=== PATIENT | female | born 1930 | race Caucasian/White ===

== ENCOUNTER 2018-06-01 15:08 | Inpatient (IN) | payer MEDICARE, OTHER ==
--- NOTE | 2018-06-01 15:46 | ED ---
Neurological HPI - HPI Summary HPI Summary: This patient is an 88 year old F presenting to [facility] accompanied by son with a chief complaint of neurological deficit since 1245. Endorses aphasia, drooling, dysphagia, pain, but pt feels no FND sx now. Pt does not remember any of the event or time preceding the event. She endorses slight frontal LIN, and numbness in right hand (for past 2 months). Son denies pt LOC. Endorses pt was mumbling. PMHx HTN, thyroid cancer, thyroidectomy. Pt endorses knee and arm pain due to PMHx arthritis. - History of Current Complaint Chief Complaint: EDNeurologicalDeficit Stated Complaint: STROKE LIKE SYMPTOMS Time Seen by Provider: 06/01/18 15:18 Hx Obtained From: Patient, Family/In Store Marketer Onset/Duration: Sudden Onset, Started hours ago, Resolved Timing: Sudden Onset Onset Severity: Severe Current Severity: None Neurological Deficit Location: Generalized Headache Location: Frontal Character: Weak, Numbness/Tingling - chronic, Impaired Speech, Confusion Syncope Context: Witnessed, Loss of Consciousness: No, At Rest Aggravating: Nothing Alleviating: Spontanious Resolution Associated Signs and Symptoms: Positive: Unsteady Gait, Headache, Memory Loss, Confusion, Weakness, Decreased Level of Consciousness, Impaired Speech. Negative: Loss of Consciousness - Allergy/Home Medications Allergies/Adverse Reactions: Allergies Allergy/AdvReac Type Severity Reaction Status Date / Time codeine Allergy Nausea And Verified 06/01/18 15:19 Vomiting Home Medications: Home Medications Acetaminophen [Acetaminophen Extra Strength] 1,000 mg PO BID PRN 06/01/18 [ History Confirmed 06/01/18] Aspirin EC TAB* [Ecotrin EC Low Dose 81 MG*] 81 mg PO DAILY 06/01/18 [History Confirmed 06/01/18] Ibuprofen TAB* [Advil TAB*] 200 mg PO Q8H PRN 06/01/18 [History Confirmed ] Irbesartan (NF) [Avapro (NF)] 150 mg PO QAM 06/01/18 [History Confirmed 06/01/18 ] Levothyroxine TAB* [Synthroid TAB*] 150 mcg PO DAILY 06/01/18 [History Confirmed 06/01/18] Melatonin 5 mg PO BEDTIME 06/01/18 [History Confirmed 06/01/18] Metoprolol Succinate XL TAB* [Toprol XL TAB*] 50 mg PO DAILY 06/01/18 [History Confirmed 06/01/18] PMH/Surg Hx/FS Hx/Imm Hx Cardiovascular History: Reports: Hx Hypertension Musculoskeletal History: Reports: Hx Arthritis Sensory History: Reports: Hx Contacts or Glasses Opthamlomology History: Reports: Hx Contacts or Glasses EENT History: Denies: Hx Deafness - Cancer History Cancer Type, Location and Year: thyroid - Surgical History Surgery Procedure, Year, and Place: thyroidectomy Infectious Disease History: No Infectious Disease History: Denies: Traveled Outside the [place] in Last 30 Days - Family History Known Family History: Negative: Blood Disorder - Social History Occupation: Retired Alcohol Use: None Substance Use Type: Reports: None Smoking Status (MU): Never Smoked Tobacco Review of Systems Negative: Fever Positive: Other - dysphagia, drooling Positive: Arthralgia - right shoulder, wrist, knee Neurological: Other - amnesia of event. Positive: Headache, Weakness, Numbness, Slurred Speech - aphasia, mumbling. Negative: Syncope All Other Systems Reviewed And Are Negative: Yes Physical Exam - Summary Physical Exam Summary: Appearance: The patient is well-nourished in no acute distress and in no acute pain. Skin: The skin is warm and dry and skin color reflects adequate perfusion. HEENT: The head is normocephalic and atraumatic. The pupils are equal and reactive. The conjunctivae are clear and without drainage. Nares are patent and without drainage. Mouth reveals moist mucous membranes and the throat is without erythema and exudate. The external ears are intact. The ear canals are patent and without drainage. The tympanic membranes are intact. Neck: The neck is supple with full range of motion and non-tender. There are no carotid bruits. There is no neck vein distension. Respiratory: Chest is non-tender. Lungs are clear to auscultation and breath sounds are symmetrical and equal. Cardiovascular: Heart is regular rate and rhythm. There is no murmur or rub auscultated. There is no peripheral edema and pulses are symmetrical and equal. Abdomen: The abdomen is soft and non-tender. There are normal bowel sounds heard in all four quadrants and there is no organomegaly palpated. Musculoskeletal: There is no back tenderness noted. Tenderness to ROM of right shoulder. There is good capillary refill. There is no peripheral edema or calf tenderness elicited. Neurological: Patient is alert and oriented to person, place and time. The patient has symmetrical motor strength in all four extremities. Cranial nerves are grossly intact. Deep tendon reflexes are symmetrical and equal in all four extremities. No FND, NIH score is 0 Psychiatric: The patient has an appropriate affect and does not exhibit any anxiety or depression. Triage Information Reviewed: Yes Vital Signs On Initial Exam: Initial Vitals Temp Pulse Resp BP Pulse Ox 99.6 F 73 16 191/70 96 06/01/18 15:13 06/01/18 15:13 06/01/18 15:13 06/01/18 15:13 06/01/18 15:13 Vital Signs Reviewed: Yes Diagnostics - Vital Signs Vital Signs Temp Pulse Resp BP Pulse Ox 06/01/18 15:18 72 191/70 96 06/01/18 15:13 99.6 F 73 16 191/70 96 - Laboratory Result Diagrams: 06/01/18 15:56 06/01/18 15:56 Lab Statement: Any lab studies that have been ordered have been reviewed, and results considered in the medical decision making process. - Radiology CXR Xray Interpretation: No Acute Changes Radiology Interpretation Completed By: Radiologist - No evidence for acute disease. Dr. Kapoor has reviewed this report. - CT BRAIN CT Interpretation: Positive (See Comments) CT Interpretation Completed By: Radiologist - #. Negative for intracranial hemorrhage or compelling CT stigmata of acute or subacute ischemic stroke. #. Generalized small vessel ischemic disease and lacunar infarct at the anterior limb of the RIGHT internal capsule. Dr. Kapoor has reviewed this report. - EKG 1551 Cardiac Rate: NL - 73 EKG Rhythm: Sinus Rhythm ST Segment: Normal EKG Interpretation: LVH, LAD, LAFT NIH Scale - NIH Scale Level of Consciousness: Alert/Keenly Responsive Ask Patient the Month and His/Her Age: Both Correct Ask Pt to Open/Close Eyes and Glass Calibrator/Release Non-Paretic Hand: Both Correctly Best Gaze (Only Horizontal Eye Movement): Normal Visual Field Testing: No Visual Loss Facial Paresis-Pt to Smile & Close Eyes or Grimace Symmetry: Normal/Symmetrical Motor Function - Right Arm: No Drift-Holds 10 Seconds Motor Function - Left Arm: No Drift-Holds 10 Seconds Motor Function - Right Leg: No Drift-Holds 10 Seconds Motor Function - Left Leg: No Drift-Holds 10 Seconds Limb Ataxia-Must be out of Proportion to Weakness Present: Absent Sensory (Use Pinprick to Test Arms/Legs/Trunk/Face): Normal Best Language (Describe Picture, Name Items): No Aphasia Dysarthria (Read Several Words): Normal Extinction and Inattention: No Abnormality Total Score: 0 Re-Evaluation - Re-Evaluation First Eval Re-Evaluation Time: 17:00 Change: Unchanged Comment: feels fine, exam is unchanged Course/Dx - Course Course Of Treatment: Ms. Shaikh had a vague episode at home some time around noon or 1:00. She became poorly responsive and mumbling and dropped a glass of water. On arrival to the emergency department she has no complaints. She was noted to have a slight leukocytosis of 13.5 and her workup was otherwise unremarkable. I'm not sure if this represents a TIA or syncopal episode or something else and the hospitals were contacted for admission. - Diagnoses Provider Diagnoses: Syncope - Physician Notifications Discussed Care Of Patient With: Steff Stephens Time Discussed With Above Provider: 17:50 Instructed by Provider To: Other - accepted admission, recommend call Dr. Nava. Discharge - Sign-Out/Discharge Documenting (check all that apply): Patient Departure - admit - Discharge Plan Condition: Fair Disposition: ADMITTED TO [facility] Referrals: Kishan Nava MD [Medical Doctor] - - Billing Disposition and Condition Condition: FAIR Disposition: Admitted to [facility]
--- OUTSIDE RECORDS SUMMARY | 2018-06-01 15:51 | XMS REPORT ---
:1930 External Reference #:[id number] Author Organization [facility] Address [address], [address] [place] [address] Phone [phone] Care Team Providers Name Role Phone Juliana Infante N.PMyesha Care Team Information Electronic Installer Unavailable Juliana Infante N.PMyesha Primary Care Physician Unavailable Payers Type Date Identification Numbers Payment Provider Subscriber Commercial Policy Number: [id number] [employer] Cristela Thorpe PayID: [id number] [address] [address] [place] [address] Problems Date Description Provider Status Onset: 05/30/2018 Localized, primary osteoarthritis Hector Franco M.D. Active Social History Type Date Description Comments Lives With Daughter Lives With Son Occupation Retired Work Status Retired Hand Dominance Right-handed Cigarette Use Never Smoked Cigarettes ETOH Use Never used alcohol Recreational Drug Use Never Used Drugs Allergies, Adverse Reactions, Alerts Date Description Reaction Status Severity Comments 04/20/2018 Codeine active 05/30/2018 Percocet GI problems active Medications Medication Date Status Form Strength Qnty SIG Indications Ordering Provider Aspirin 81 Low Active Chewtabs 81mg 1 by mouth Unknown Dose 000 every day Simvastatin Active Tablets 10mg 1 by mouth Unknown 000 every day Irbesartan Active Tablets 150mg 1 by mouth Unknown 000 every day Melatonin Active Capsules 5mg 1 by mouth Unknown 000 every at bedtime as needed Metoprolol Active Tablets 25mg 1 by mouth Unknown Tartrate 000 twice a day Acetaminophen 00/00/0 Active Tablets 325mg 2 by mouth Unknown 000 every 4 hours as needed for pain, headache Levothyroxine Active Tablets 150mcg 1 tablet Colino, Sodium 000 by mouth Alem A., every day SILK [employer]ER Ibuprofen 200 Active Tablets 200mg 1-2 tabs Unknown 000 by mouth three times a day as needed Levothyroxine Hx Tablets 112mcg 1 by mouth Unknown Sodium 000 - every day 018 Levothyroxine 0 Hx Tablets 25mcg 1 by mouth Unknown Sodium 000 - every day 018 Oxycodone HCL Hx Solution 5mg/5ML Unknown 000 - 018 Colace Hx Capsules 100mg 1 by mouth Unknown 000 - daily and can take 018 twice a day as needed Ondansetron HCL Hx Tablets 4mg 1 tab Unknown 000 - every 6hr as needed 018 for nausea Vital Signs Date Vital Result Comment 04/20/2018 BP Systolic 126 mmHg BP Diastolic 59 mmHg Body Temperature 97.6 F Heart Rate 67 /min Respiratory Rate 10 /min Height 63.75 inches 5'3.75" Rarden body weight in kilograms 54 O2 % BldC Oximetry 96 % 04/20/2018 Height 63.75 inches 5'3.75" Weight 130.00 lb Estimated - Patient In Wheelchair BMI (Body Mass Index) 22.5 kg/m2 BSA (Body Surface Area) 1.62 m2 Rarden body weight in kilograms 54 Results Description No Information Procedures Date CPT Code Description Status 05/30/2018 Asp./Injection major joint Completed 04/20/2018 09871 Radiology, Shoulder: Two Views (Sso) Completed 04/20/2018 Asp./Injection major joint Completed 04/10/2018 Asp./Injection major joint Completed Encounters Type Date Location Provider CPT E/M Dx Office Visit 05/30/2018 1:15p [facility]opa[facility] Office Hector Franco M.D. [id number] M17.11 Office Visit 04/20/2018 10:00a Orthopaedic Office Hector Franco M.D. [id number] M25.511 Plan of Care Future Appointment(s):07/10/2018 10:30 am - [id number]/30/2018 - Hector Franco M.D.M17.11 Unilateral primary osteoarthritis, right knee
--- NOTE | 2018-06-01 16:08 | RAD ---
INDICATION: Syncope. COMPARISON: There are no prior studies available for comparison. TECHNIQUE: A portable view of the chest was obtained. FINDINGS: The heart appears mildly enlarged. The lungs are grossly clear. No pleural effusion is seen. IMPRESSION: NO EVIDENCE FOR ACUTE DISEASE.
[2018-06-01 16:10] LABS: ABS Basophils 0.1 10^3/ul (0-0.2); ABS Eosinophils 0 10^3/ul (0-0.6); ABS Lymphocytes 1.9 10^3/ul (1.0-4.8); ABS Monocytes 1.3 10^3/ul (0-0.8); ABS Neutrophils 10.6 10^3/ul (1.5-7.7); ABS Nucleated RBC 0 10^3/ul; Eosinophil % 0.1 % (0-6); Hematocrit 33 % (35-47); Hemoglobin 10.9 g/dl (12.0-16.0); Lymphocyte % 13.9 % (25-47); Mean Corpuscular HGB Conc 33 g/dl (31-36); Mean Corpuscular Hemoglobin 30 pg (27-31); Mean Corpuscular Volume 93 fL (80-97); Mean Platelet Volume 10.2 um3 (7.4-10.4); Nucleated Red Blood Cells % 0; Platelet Count 191 10^3/ul (150-450); Red Blood Count 3.59 10^6/ul (4.00-5.40); Red Cell Distribution Width 16 % (10.5-15); White Blood Count 13.9 10^3/ul (3.5-10.8)
[2018-06-01 16:13] LABS: INR 0.88 (0.77-1.02)
[2018-06-01 16:38] LABS: EGFR Non-African American 62.3 (>60)
--- NOTE | 2018-06-01 17:11 | RAD ---
Indication: Syncope. RIGHT side weakness. Stroke symptoms. Comparison: No relevant prior exams available on the [facility] for comparison. Technique: Noncontrast CT vertex of skull through foramen magnum. Report: Mild prominence of the cerebral sulci. 1 cm chronic appearing lacunar infarct at the anterior limb of the RIGHT internal capsule. Decreased density in the periventricular and subcortical white matter while non-specific is most likely due to chronic microangiopathy. Negative for mass effect. No intra or extra-axial hemorrhage evident. Unremarkable ventricles and basal cisterns. Unremarkable orbital contents. Indolent thickening of the inner table of the frontal bone. No suspicious calvarial or skull base lesions evident. Unremarkable scalp. IMPRESSION: #. Negative for intracranial hemorrhage or compelling CT stigmata of acute or subacute ischemic stroke. #. Generalized small vessel ischemic disease and lacunar infarct at the anterior limb of the RIGHT internal capsule.
[2018-06-01 18:13] LABS: Urine Appearance Clear; Urine Blood Negative (Negative); Urine Color Yellow; Urine Ketones Negative (Negative); Urine Protein Negative (Negative); Urine Specific Gravity 1.018 (1.010-1.030); Urine Urobilinogen Negative (Negative)
[2018-06-01] MEDS ORDERED: Iohexol 350* (CONTRAST) 500 ML MDV IV ONE (19:13)
[2018-06-01] MEDS ORDERED: hydrALAZINE IV* 20 MG/ML VIAL IV SLOW PU PRN (19:32)
--- NOTE | 2018-06-01 20:02 | RAD ---
INDICATION: TIA. COMPARISON: No relevant prior exams available on the [facility] for comparison. TECHNIQUE: Bilateral carotid duplex scan. Stenosis estimations reflect velocity criteria that have been correlated to angiographic stenosis calculations based on distal internal carotid diameter. REPORT: RIGHT ICA: 87 cm/s peak systolic 14 cm/s end diastolic CCA: 97 cm/s peak systolic ICA/CCA peak systolic ratio: 0.89 The right common carotid artery and internal carotid artery are remarkable for only minimal atherosclerotic disease. Normal spectral wave forms are present throughout. No evidence for significant carotid stenosis. Antegrade flow in the right vertebral artery. LEFT ICA: 76 cm/s peak systolic 8 cm/s end diastolic CCA: 83 cm/s peak systolic ICA/CCA peak systolic ratio: 0.92 The left common carotid artery and internal carotid artery are remarkable for only minimal atherosclerotic disease. Normal spectral wave forms are present throughout. Severely tortuous LEFT internal and external carotid arteries. No evidence for significant carotid stenosis. Antegrade flow in the left vertebral artery. IMPRESSION: #. Minimal bilateral atherosclerotic plaque without resulting carotid stenosis based on NASCET criteria. CPT II Codes: 3100F
--- NOTE | 2018-06-01 20:46 | RAD ---
Indication: Confusion. RIGHT-sided weakness. TIA symptoms. Comparison: CT brain of the same date. Technique: [employer] [place] 1.5 Anabel [id number] with GEM suite. MRI brain without contrast. Report: Diffusion series is negative for acute or subacute ischemia. Susceptibility series is negative for stigmata of hemosiderin deposition to indicate previous hemorrhage. Mild prominence of the cerebral sulci reflecting atrophy. Unremarkable ventricles and basal cisterns. 1.2 cm chronic lacunar infarct at the RIGHT basal ganglia. Moderate grossly symmetric increased signal in the periventricular and subcortical white matter of the cerebral hemispheres most consistent with chronic small vessel ischemic disease. No intra or extra-axial fluid collection evident. Unremarkable orbital contents. Preserved major intracranial flow-voids. No suspicious calvarial or skull base lesion evident. Fluid level and gas bubbles noted at the LEFT sphenoid sinus. The paranasal sinuses and mastoid air spaces are otherwise clear. Unremarkable scalp. IMPRESSION: #. No evidence for acute or subacute ischemia or other acute intracranial process. #. Mild involutional change and stigmata of chronic small vessel ischemic disease. Chronic lacunar infarct at the RIGHT basal ganglia. #. Correlate clinically for potential acute LEFT sphenoid sinusitis.
--- NOTE | 2018-06-01 21:32 | HP ---
HOSPITAL MEDICINE HISTORY AND PHYSICAL: DATE OF ADMISSION: 06/01/18 PRIMARY CARE PHYSICIAN: None. ATTENDING PHYSICIAN: Steff Stephens MD * (dictation provided by Danette Jarquin NP ) CHIEF COMPLAINT: Episode of confusion and mumbling. HISTORY OF PRESENT ILLNESS: Ms. Thorpe is an 88-year-old female with a past medical history of hypertension, thyroid cancer, status post thyroidectomy who presents today to the hospital after an episode of mumbling and confusion. Ms. Thorpe is here today with her daughter who provides some of the history as well as her son. Per the report, Ms. Thorpe was feeling well yesterday. There is note made of the fact the before the patient was "exhausted" and slept all day. She was arousable and was appropriate when she awoke. Again, she felt well yesterday. This morning at approximately noon, the patient had an episode where she was mumbling. The patient is described as being able to answer her name and date of at times, then just staring off into space when asked other questions. Her speech was slurred. The patient has right arm weakness, which has been attributed to osteoarthritis in her right shoulder and right knee weakness, which has been attributed to osteoarthritis of that knee. She is wearing a brace for that now. She has been cared for by Dr. Franco of Orthopedic Surgery in [place] for both of these issues as of March. She therefore has right-sided weakness, but it seemed to be at baseline. There was no facial asymmetry noted. The patient's family called the EMS. The patient states she does not remember these events and the first thing she remembers is getting into the ambulance. She and her family feel that she is back to baseline now with no complaints. Family note that she had a similar episode in July of last year, October of last year, and March of this year. In speaking with them further, it seems that she may even had a similar episode a couple of days ago in which she was mumbling and appeared confused. Ms. Thorpe has a complicated recent history. She recently moved from [place] to live with her daughter. In July 2017, she had mumbling episode. In October 2017, she had a second episode associated with a fall in which she hit her head and she was cared for at [facility] for several days during which time she was described as being delirious. She went to [facility] for rehabilitation after this episode. In March, she developed pain in her right knee and right shoulder with weakness on that side and she was cared for at [facility] under the direction of Dr. Franco from orthopedic services. The patient has had steroid injections to her knee and shoulder for ongoing pain, but she does also have weakness. She again went to [facility] after that hospitalization and was discharged to home on May 18. In the emergency room, Ms. Thorpe had labs, which were unremarkable except for white blood cell count of 13.9 and mild anemia with a hemoglobin of 10.9. She had CT brain, which was read as follows: "Negative for intracranial hemorrhage or compelling CT stigmata of acute or subacute ischemic stroke, but there is a 1 cm chronic appearing lacunar infarct at the anterior limb of the right internal capsule and generalized small vessel ischemic disease." PAST MEDICAL HISTORY: 1. Hypertension. 2. Hypothyroidism, status post thyroidectomy for thyroid cancer. 3. Cholecystectomy. 4. Hysterectomy. 5. Bladder tuck. 6. Osteoarthritis. 7. Previous treatment for rheumatoid arthritis, but the patient was told that it had resolved and she is no longer on methotrexate. 8. "A little heart leak" followed by professor of food biochemistry in [place] in the past. 9. Carotid artery disease, unknown severity. MEDICATIONS: 1. Acetaminophen 1000 mg p.o. b.i.d. 2. Ibuprofen 200 mg p.o. q.8 hours p.r.n. 3. Melatonin 5 mg p.o. at bedtime. 4. Aspirin 81 mg p.o. daily. 5. Irbesartan 150 mg p.o. q.a.m. 6. Levothyroxine 150 mcg p.o. daily. 7. Metoprolol succinate 50 mg p.o. daily. ALLERGIES: To CODEINE. FAMILY HISTORY: The patient reports mother of old age at age of 92 and dad related to colon cancer at 72. SOCIAL HISTORY: No report of alcohol, tobacco, or drug use. The patient lives with her daughter and her son. Her daughter, Xiomara Hernandez, would be the healthcare proxy. REVIEW OF SYSTEMS: A 14-point review of systems was completed with Ms. Thorpe and all those not mentioned above were negative. PHYSICAL EXAMINATION GENERAL: Ms. Thorpe is in the bed with her daughter and son at the bedside. VITAL SIGNS: Temperature 99.6, pulse 87, respiratory rate 16, O2 saturation 96 % on room air, blood pressure 185/76. LUNGS: Clear to auscultation bilaterally with no accessory muscle use and good aeration. HEART: S1 and S2. No murmur, rub, or gallop and regular. ABDOMEN: Soft, nontender with bowel sounds positive x4. EXTREMITIES: No cyanosis or edema. NEURO: She is alert. She is oriented x3. She has weakness noted in right upper extremity. She has pain limiting mobility in the right shoulder. She has weakness in her right handgrip. There is positive +5 strength in the left upper extremity and good strong color separation photographer. She has +5 strength in bilateral lower extremities. No facial asymmetry. Speech is clear. Extraocular movements are intact. SKIN: Intact. LABORATORY DATA: Sodium 137, potassium 4.8, chloride 106, serum bicarbonate 23 , BUN 43, creatinine 0.86, glucose 93. TSH 4.62. WBC 13.9, hemoglobin 10.9, hematocrit 33, platelet count 191. INR 0.88. Urine shows no evidence of infection. IMAGING: CT brain as read above. Chest x-ray shows no evidence for acute disease. EKG shows a sinus rhythm with a heart rate in the 70s and no evidence of ischemia. ASSESSMENT AND PLAN: Ms. Thorpe is an 88-year-old female with a past medical history of hypertension and hypothyroidism, status post thyroidectomy for thyroid cancer as well as at least 3 recent episodes of described as mumbling and confusion per family who now presents with a 4th episode of mumbling and confusion that is now resolved. Our plans are for inpatient admission as I expect her length of stay to be greater than 2 days for the followin. Episode of mumbling. Patient's symptoms could reflect a transient ischemic attack. CT of the brain does show an old lacunar infarct, but no current acute or subacute infarct. I reviewed the case with Dr. Martines from Neurology , who will be providing consultation tomorrow. The patient is to have a carotid ultrasound now. She states that she has a history of carotid artery disease in the past. The patient states she had a carotid evaluation sometime recently, but she is not able to provide any further characterization. I did speak with the family about whether or not they would want intervention for significant carotid stenosis and they indicated no. The patient will go on for an MRI of the brain. The patient will have a transthoracic echocardiogram, lipid profile. She will have a hemoglobin A1c. The patient's blood pressure is elevated in the ED, but I do plan to allow for some permissive hypertension and allow blood pressure to range from 140 to 180 systolically this evening and we will have hydralazine available for anything above 180. She has aspirin ordered and Dr. Martines recommended continuing low-dose aspirin pending his further evaluation tomorrow. The patient's symptoms could also be related to seizures and EEG has been ordered. 2. Hypertension. Continue metoprolol and irbesartan with hydralazine available for blood pressure greater than 180. 3. Hypothyroidism. Continue levothyroxine. 4. Right sided weakness. Patient's symptoms in her right shoulder and knee seemed to have evolved separately over time culminating in more significant symptoms in March. She does have significant right upper extremity weakness which is reported to be at baseline. She has been undergoing therapy at home, plan to continue. These symptoms do not appear to be related to CVA but MRI results are pending. 5. Code status is DNR. 6. Disposition to telemetry unit. TIME SPENT: Approximately 60 minutes were spent on the admission of this patient, more than half the time spent with the patient at the bedside reviewing the events leading up to this hospitalization, performing the physical examination, and reviewing the plan of care. DANETTE JARQUIN NP [id number]/[facility] #: [id number] SANAZ
--- NOTE | 2018-06-02 06:13 | PN ---
Progress Note - Progress Note Date of Service: 06/02/18 Note: Nursing called reporting recurrence of admitting symptoms of word searching/ substitution. Last known normal 0400. Upon arrival, she is able to give her name , but to other questions murmurs incoherently, occasionally producing an unrelated word. She appears mildly confused, but not anxious or in distress. Denies pain. Review of her H&P reveals admission for same, suspect TIA vs seizure. vitals: Vital Signs Temp 36.9 C 06/02/18 04:01 Pulse 81 06/02/18 04:01 Resp 18 06/02/18 04:01 BP 159/55 06/02/18 04:01 Pulse Ox 95 06/02/18 04:01 Intake & Output 06/01/18 06/01/18 06/02/18 11:59 23:59 11:59 Intake Total 0 Balance 0 Weight 60.056 kg Intake: Oral 0 Constitutional: NAD, normally developed, well-nourished elderly white female HEENM: atraumatic; sclera/conjunctiva: anicteric/clear; hearing: clinically intact; oropharynx: clear, mucosa moist Neck: soft tissue: ; thyroid: Pulmonary: clear to auscultation bilaterally, good aeration, no accessory muscle use, percussion, fremitus CV: RR/RR, normal S1S2, no carotid bruit, no femoral bruit, no abdominal bruit, no jugular venous distention, 2+ B DP/PT, no edema Abdominal: soft, non-distended, non-tender, no rebound/guarding/rigidity, normoactive bowel sounds, no hepatosplenomegaly or masses, no costovertebral angle tenderness Musculoskeletal: general: grossly intact, non-tender Integumental: normal appearance and texture of exposed skin Neurological cranial nerves II: unable to adequately assess visual main III/IV/: symmetric light reflex, EOMI/PERRLA V: intact facial sensation & mastication VII: intact facial symmetry & eye clench VIII: hearing clinically intact IX/X: symmetric palatal motion, no dysarthria XII: midline tongue protrusion, expressive aphasic voice articulation motor LUE: 4+/5 proximally, distally, & application specialist strength RUE: 4+/5 proximally, distally, & application specialist strength LLE: 4+/5 proximally & distally RLE: 4+/5 proximally & distally coordination finger/nose: heal/suarez: dysdiadochokinesia: sensory crude touch: intact globally DTRs biceps: 2+ brisk B triceps: 1+ B brachioradialis: trace B patellar: unable to produce B, patient c/o pain with attempts Babinski: upgoing B Psychiatric orientation: AA&O to person, unable to produce words to clarify further affect: calm mood: cooperative eye contact: fair to poor content: mostly incoherent with sprinkled unrelated words memory: unable to assess responses: timely insight: currently poor repeat CT brain to r/o ICH, personally reviewed: largely limited by motion artifact, awaiting official read assessment: plan TIA vs seizure : case reviewed with Nazia Martines MD neurology : keep supine : IVFs to support higher blood pressure : continue aspirin, add 75mg clopidogrel daily : obtain carotid US : EEG this AM : 75mg levetiracetam IV now & continue 500mg PO BID : not a candidate for tPA : patient/family had declined surgical intervention for carotid artery disease : further chart review finds carotid US completed yesterday, negative Critical Care Time: 50minutes spent on above
[2018-06-02] MEDS ORDERED: NS 0.9% 1000 ML* 500 ML IV SCH (06:30)
[2018-06-02] MEDS ORDERED: Acetaminophen TAB* 325 MG PO PRN (06:32)
[2018-06-02] MEDS: Levothyroxine TAB* 150 MCG TAB PO SCH (06:33)
[2018-06-02] MEDS: Clopidogrel TAB* 75 MG PO SCH (06:34)
[2018-06-02] MEDS ORDERED: levETIRAcetam IV* 750 MG in NS 0.9% 100 ML* 100 ML IVPB SCH (07:00)
--- NOTE | 2018-06-02 08:34 | RAD ---
Indication: Stroke. CT of the brain was performed without IV contrast. Ventricular structures are midline. No midline shift is noted. The extra-axial spaces are unremarkable. There is no evidence of intracranial mass or hemorrhage. No other high or low density lesions are identified. Periventricular lucency consistent with chronic ischemic White matter change is noted. Old right basal ganglia infarct is noted. Mastoid air cells and paranasal sinuses are unremarkable. When compared to previous exam of June 01, 2018 no significant change is noted. IMPRESSION: Chronic ischemic White matter change. No acute changes are noted. No intracranial mass or hemorrhage is noted. Old right basal ganglia infarct is noted.
[2018-06-02] MEDS: Aspirin 81 mg CHEW TAB* 81 MG TAB.CHEW PO SCH (08:47)
[2018-06-02] MEDS ORDERED: Losartan TAB* 25 MG PO SCH ×2 (09:00→18:00)
[2018-06-02] MEDS ORDERED: Aspirin TAB* 325 MG PO SCH (09:00)
[2018-06-02] MEDS ORDERED: Aspirin EC TAB* 81 MG TAB.EC PO SCH (09:00)
[2018-06-02] MEDS ORDERED: Metoprolol Succinate XL TAB* 50 MG PO SCH (09:00)
--- NOTE | 2018-06-02 11:12 | CONS ---
CONSULTATION REPORT: DATE OF CONSULT: HISTORY OF PRESENT ILLNESS: This is an 88-year-old woman being evaluated for multiple episodes of mumbling and difficulty speaking. History is from the patient, from the daughter who I called, and from the chart. She has had these mumbling episodes since July of 2017, she had a second one in October of 2017, and she was treated up at [facility] for several days' time. In March, while being treated for orthopedic problems in [facility], she had another mumbling episode that lasted more than 12 hours according to the daughter. Daughter notes that the episodes all begin with her mumbling and being somewhat confused. There is no staring. If she is asked her name, she could eventually get it out and just mumble it, but her speech is greatly decreased. During this , she tends to slump. The daughter denied any abnormal movements with any of these episodes and no clear change in strength. She has right shoulder and knee problems that have affected the right side of her body, but this is a chronic ongoing problem according to the daughter and the chart. She came in yesterday with episode of mumbling and confusion that lasted 2-1/2 hours and then resolved. She then early this morning had an episode of mumbling that resolved shortly after she had a repeat CT scan. There are no abnormal movements or clear weakness of any with these episodes. There is no past history of clear seizure or stroke. PAST MEDICAL/SURGICAL HISTORY: She has a history of hypertension, hypothyroidism, status post thyroidectomy for thyroid cancer, cholecystectomy, hysterectomy, bladder tuck, osteoarthritis. She has had a past history of rheumatoid arthritis, apparently resolved. She has a history of carotid disease. MEDICATIONS: At home, include: 1. Ibuprofen 200 mg p.r.n. 2. Melatonin 5 mg at bedtime. 3. Aspirin 81 mg daily. 4. Irbesartan 150 mg q.a.m. 5. Levothyroxine 150 mcg daily. 6. She was recently started on metoprolol 50 mg in the morning at [place]. She was hospitalized at [facility] [place] and her statin was stopped but not due to any clear side effects according to the daughter. ALLERGIES: She is allergic to CODEINE. FAMILY HISTORY: Mother of old age at 92 and dad of colon cancer at 72. SOCIAL HISTORY: She does not smoke, drink, or use drugs, and she lives with her daughter. REVIEW OF SYSTEMS: Negative in all 14 spheres, other than in the HPI. PHYSICAL EXAM: Temperature 98.4; pulse 81; respiratory rate is 18; blood pressure 159/55, diastolic has been as low as 47. She is alert and oriented with normal speech and comprehension. She spoke in sentences. Cranial nerves II through XII intact. Fundi showed good reflex bilaterally. She moves all extremities with power, roughly 5/5, although she was somewhat limited by pain at her right shoulder and at her right knee. Sensation grossly intact to light touch. Reflexes were trace to 1 with equivocal to downgoing toes. Chest: Clear. Cardiovascular: Regular rate and rhythm. Abdomen: Soft with positive bowel sounds. DIAGNOSTIC STUDIES/LAB DATA: I reviewed her MRI scan from yesterday and her CT scan from yesterday and today. There is diffuse significant white matter disease bilaterally as well as a small old lacunar infarct in the right basal ganglia. Her carotid Doppler done yesterday showed minimal carotid disease. Labs include normal CMP other than a BUN of 43, hemoglobin A1c was 6.3, LDL was 101. White count 13.9, hematocrit 33, platelets 191. INR is 0.88, PTT 16.6. UA was negative. ASSESSMENT AND PLAN: I discussed with Danette Jarquin NP, Dr. Mark Martínez, and daughter this morning that Cristela's symptoms could either be secondary to transient ischemic attacks in a distal branch of the carotid. The family and she did not want aggressive intervention and she does not have any carotid disease; it is conceivable davion has atherosclerosis more distally and that is causing her symptoms perhaps in combination with hypotension. I discussed with Dr. Lopez whether metoprolol may be exacerbating this potentially underlying problem. We will also, if she tolerated, have her on aspirin and Plavix for 3 months in case there is distal atherosclerotic disease, the other possibility is that this could be seizures. Her spells last little bit too long for it to be likely to be seizures; they have lasted more than 10 hours in one case and without any abnormal movements and with her being responsive but just difficulty saying her name during. We began her on Keppra this morning when she was having repeated attacks and the story was less clear. If her EEG is normal , even though that does not rule out the seizures. I discussed with her and the family the pros and cons of a therapeutic trial of keppra and given the stereotyped nature of her events and the recurrence they want to try her on keppra and discussed side effects and if significant moodiness occurs will reconsider. Thank you for sharing her case. [id number]/[facility] #: [id number] SANAZ
[2018-06-02 11:28] LABS: Hematocrit 32 % (35-47); Hemoglobin 10.3 g/dl (12.0-16.0); Mean Corpuscular HGB Conc 33 g/dl (31-36); Mean Corpuscular Hemoglobin 30 pg (27-31); Mean Corpuscular Volume 93 fL (80-97); Mean Platelet Volume 10.3 um3 (7.4-10.4); Platelet Count 177 10^3/ul (150-450); Red Cell Distribution Width 16 % (10.5-15); White Blood Count 16.8 10^3/ul (3.5-10.8)
[2018-06-02 11:41] LABS: EGFR Non-African American 92.6 (>60)
[2018-06-02 11:55] LABS: ABS Basophils 0.1 10^3/ul (0-0.2); ABS Eosinophils 0.1 10^3/ul (0-0.6); ABS Lymphocytes 2.6 10^3/ul (1.0-4.8); ABS Monocytes 1.6 10^3/ul (0-0.8); ABS Neutrophils 12.4 10^3/ul (1.5-7.7); ABS Nucleated RBC 0 10^3/ul; Eosinophil % 0.5 % (0-6); Lymphocyte % 15.2 % (25-47); Nucleated Red Blood Cells % 0
--- NOTE | 2018-06-02 14:37 | ECHO ---
Patient: MICHELE BASSETT [facility] Rec#: [id number] : 1930 Date: 06/02/2018 Age: 88y Height: 163 cm / 64.2 in Weight: 60.3 kg / 132.9 lbs Sex: F BSA: 1.65 Room#: 438 Admit Date#: 06/01/2018 Type: Inpatient Referring: Danette Jarquin NP Reading: Tom Rangel MD Shoe Cementer: Natividad Winters RDCS Transthoracic Echocardiogram Indication: TIA BP: 159/55 HR: 76 Rhythm: NSR Findings History: HTN, thyroid cancer s/p thyroidectomy. Technical Comments: The study was technically limited due to the patient's inability to lay in the left lateral decubitus position. Completed at 1250. Left Ventricle: The left ventricular chamber size is normal. Mild concentric left ventricular hypertrophy is observed. Global left ventricular wall motion and contractility are within normal limits. There is normal left ventricular systolic function. The estimated ejection fraction is 60-65%. Abnormal left ventricular diastolic filling is observed, consistent with impaired relaxation. The patient was unable to perform a Valsalva maneuver. Left Atrium: The left atrium is moderately dilated. Right Ventricle: Moderator Band present. The right ventricular cavity size is normal. The right ventricular global systolic function is normal. Right Atrium: The right atrium is mildly dilated. Aortic Valve: The aortic valve is trileaflet. The aortic valve leaflets are mildly thickened. There is mild aortic regurgitation. There is no evidence of aortic stenosis. Mitral Valve: There is mitral annular calcification. The mitral valve leaflets are mildly thickened. There is moderate mitral regurgitation. Tricuspid Valve: The tricuspid valve leaflets are normal. There is trace tricuspid regurgitation. Unable to estimate the right ventricular systolic pressure. Pulmonic Valve: The pulmonic valve structure is not well visualized. There is no evidence of pulmonic regurgitation. There is no pulmonic stenosis. Pericardium: There is no significant pericardial effusion. A pericardial fat pad is visualized. Aorta: There is no dilatation of the ascending aorta. There is no dilatation of the aortic arch. The aortic root is normal in size. Pulmonary Artery: The main pulmonary artery is not well visualized. Venous: The inferior vena cava is dilated. There is an approximate 50% respiratory change in the inferior vena cava dimension. Conclusions There is normal left ventricular systolic function. The estimated ejection fraction is 60-65%. Global left ventricular wall motion and contractility are within normal limits. The left ventricular chamber size is normal. Mild concentric left ventricular hypertrophy is observed. Abnormal left ventricular diastolic filling is observed, consistent with impaired relaxation. The left atrium is moderately dilated. The right atrium is mildly dilated. There is mild aortic regurgitation. There is moderate mitral regurgitation. There is no prior echocardiogram available to compare with at this time. Measurements Name Value Normal Range RVIDd (AP) 2D 3 cm (0.9 - 2.6) RVDdMajor (2D) 3.4 cm (2.2 - 4.4) RAd ISD 4CH 5.5 cm (3.4 - 4.9) RA (A4C)W 4 cm (2.9 - 4.6) IVSd (2D) 1.2 cm (0.6 - 1) LVPWd (2D) 1.3 cm (0.6 - 1) LVIDd (2D) 4.1 cm (3.6 - 5.4) LVIDs (2D) 2.1 cm - LV FS (2D) 48 % (25 - 45) Aortic Annulus 2.1 cm (1.4 - 2.6) Ao root diameter (2D) 3.2 cm (2.1 - 3.5) Ascending Ao 2.8 cm (2.1 - 3.4) Aortic arch 2.5 cm (1.8 - 3.4) LA dimension (AP) 2D 4.1 cm (2.3 - 3.8) LAd ISD 4CH 5.6 cm (2.9 - 5.3) LA ISD 4CH W 4.6 cm (2.5 - 4.5) Name Value Normal Range LA ESV BP (A/L) index 39 ml/m2 - Name Value Normal Range MV E-wave Vmax 0.6 m/sec - MV deceleration time 261 msec - MV A-wave Vmax 0.78 m/sec - MV E:A ratio 0.8 ratio - LV septal e' Vmax 0.06 m/sec - LV lateral e' Vmax 0.06 m/sec - LV E:e' septal ratio 10 ratio - LV E:e' lateral ratio 10 ratio - Name Value Normal Range AV Vmax 1.2 m/sec - AV VTI 26.7 cm - AV peak gradient 5 mmHg - AV mean gradient 3 mmHg - LVOT Vmax 1.1 m/sec - LVOT VTI 26.7 cm - LVOT peak gradient 5 mmHg - LVOT mean gradient 3 mmHg - MARIANGEL Vmax 0.74 m/sec - Name Value Normal Range MR Vmax 5.5 m/sec - MR VTI 184 cm - MR flow (PISA) 46.7 ml/sec - MR ERO 0.09 cm2 - MR PISA radius 0.4 cm - MR alias Vmax 46.2 cm/sec - Name Value Normal Range IVC diameter 2.8 cm - Name Value Normal Range PV Vmax 0.67 m/sec - PV peak gradient 2 mmHg -
--- NOTE | 2018-06-02 16:21 | PN ---
Subjective Date of Service: 06/02/18 Interval History: Patient is A/Ox1 and has a waxing and waning mental status with mood swings. Recurrent aphasia overnight. Improved today. Still very lethargic and falls asleep in the middle of conversations. Accusing nursing staff of lying to her. Denies CP, SOB, Dizziness, N/V, abdominal pain, diarrhea, Dysuria, F/C, or other pain. Discussed baseline with daughter and she states that this is very much removed from patient's baseline which is very alert and conversational. Family History: Unchanged from Admission Social History: Unchanged from Admission Past Medical History: Unchanged from Admission Objective Active Medications: Acetaminophen (Tylenol Tab*) 650 mg PO Q6H PRN PRN Reason: FEVER/PAIN Last Admin: 06/02/18 06:55 Dose: 650 mg Aspirin (Aspirin 81 Mg Chew Tab*) 81 mg PO DAILY [facility] Last Admin: 06/02/18 08:47 Dose: 81 mg Atorvastatin Calcium (Lipitor*) 40 mg PO 1700 [facility] Clopidogrel Bisulfate (Plavix Tab*) 75 mg PO 0900 [facility] Last Admin: 06/02/18 06:34 Dose: 75 mg Levetiracetam (Keppra Tab*) 500 mg PO BID [facility] Levothyroxine Sodium (Synthroid Tab*) 150 mcg PO 0600 [facility] Last Admin: 06/02/18 06:33 Dose: 150 mcg Losartan Potassium (Cozaar Tab*) 50 mg PO QPM [facility] Metoprolol Succinate (Toprol Xl Tab*) 25 mg PO DAILY [facility] Vital Signs - 8 hr 06/02/18 11:10 Temperature 98.3 F Pulse Rate 75 Respiratory 20 Rate Blood Pressure 174/56 (mmHg) O2 Sat by Pulse 97 Oximetry Oxygen Devices in Use Now: None Appearance: Patient is an 88yo female who appears stated age and is sitting in the bed in [facility]. Eyes: No Scleral Icterus, PERRLA Ears/Nose/Mouth/Throat: NL Teeth, Lips, Gums, Clear Oropharnyx, Mucous Membranes Moist Neck: NL Appearance and Movements; NL JVP, Trachea Midline Respiratory: Symmetrical Chest Expansion and Respiratory Effort, Clear to Auscultation Cardiovascular: NL Sounds; No Murmurs; No JVD, RRR, No Edema Abdominal: NL Sounds; No Tenderness; No Distention, No Hepatosplenomegaly Lymphatic: No Cervical Adenopathy Extremities: No Edema, No Clubbing, Cyanosis Skin: No Rash or Ulcers, No Nodules or Sclerosis Neurological: NL Sensation, - - A/Ox1, CN II-XII intact. 4/5 strength in left side consistnet with previous reporting. Result Diagrams: 06/02/18 11:15 06/02/18 11:15 Assess/Plan/Problems-Billing Assessment: Patient is an 88yo female with a PMH for TIA, Hypothyroidism, HLD, HTN, Carotid Artery Disease, here with Recurrent neurological episodes of difficulty finding words and is being evaluated for ischemic events versus seizure activity. Patient currently has a fluctuating mental state consistent with delirium. - Patient Problems (1) Aphasia Current Visit: Yes Status: Acute Code(s): R47.01 - APHASIA SNOMED Code(s) : 80857580 Comment: Recurrent Stereotyped episodes of Expressive Aphasia. No involuntary movements. Previously had weakness associated with aphasia. Continue Aspirin, Plavix and Lipitor for Possible TIA. Continue Keppra for possible seizure given stereotyped nature of attacks. MRI shows no ischemia, Carotid US shows no stenosis, Echo shows no PFO or dilated LA. No current aphasia. (2) Hyperlipidemia Current Visit: Yes Status: Acute Code(s): E78.5 - HYPERLIPIDEMIA, UNSPECIFIED SNOMED Code(s): 21466588 Comment: Goal of LDL 70 in setting of TIA. Resume Lipitor, no documented adverse reaction. (3) HTN (hypertension) Current Visit: Yes Status: Acute Code(s): I10 - ESSENTIAL (PRIMARY) HYPERTENSION SNOMED Code(s): 01477541 Comment: Permissive hypertension in setting of TIA. Reduced dose metoprolol, recently stopped dyazide. Resume Losartan. HOB flat. Will titrate medication stating tomorrow with different agent than metoprolol. (4) Hypothyroidism Current Visit: Yes Status: Acute Code(s): E03.9 - HYPOTHYROIDISM, UNSPECIFIED SNOMED Code(s): 14836058 Comment: TSH WNL. Recent increase in Synthroid. (5) Delirium Current Visit: Yes Status: Acute Code(s): R41.0 - DISORIENTATION, UNSPECIFIED SNOMED Code(s): 4727950 Comment: Has AMS in hospitals on several occasions with fluctuating mental state. Very sharp at baseline per family. Likely hospital induced delirium. Continue supportive care and frequent reorientation. (6) DVT prophylaxis Current Visit: Yes Status: Acute Code(s): GOM1731 - SNOMED Code(s): 444699047 (7) DNR (do not resuscitate) Current Visit: Yes Status: Acute
[2018-06-02] MEDS ORDERED: Atorvastatin* 40 MG TAB PO SCH (17:00)
[2018-06-02] MEDS: Heparin VIAL(*) 5000 UNITS/ML VIAL (FIVE THOUSAND) SUBCUT SCH (20:49)
[2018-06-02] MEDS: levETIRAcetam TAB* 500 MG PO SCH (20:49)
--- NOTE | 2018-06-03 02:15 | EEG ---
ELECTROENCEPHALOGRAPHY: DATE OF STUDY: DATE OF DICTATION: 06/02/18 PATIENT OF: Danette Jarquin NP CLINICAL PROBLEM: This is an 88-year-old woman being evaluated for staring spells and slurred speech. This study was done to evaluate for possible seizures. MEDICATIONS: Include: 1. Keppra. 2. Aspirin. 3. Cozaar. 4. Toprol. 5. Synthroid. 6. Plavix. 7. Apresoline. REPORT: With the patient awake, background cerebral activity consists of moderate amplitude diffuse 7 to 8 Hz rhythm. No epileptiform potentials, focal abnormalities or major asymmetries of background are noted. CLINICAL IMPRESSION: This awake EEG shows no major abnormalities. There is some swelling secondary to perhaps age. [id number]/[facility] #: [id number] MTDD
[2018-06-03] MEDS ORDERED: hydrALAZINE IV* 20 MG/ML VIAL IV PRN (04:32)
[2018-06-03] MEDS: Levothyroxine TAB* 150 MCG TAB PO SCH (04:41)
[2018-06-03] MEDS: Heparin VIAL(*) 5000 UNITS/ML VIAL (FIVE THOUSAND) SUBCUT SCH (04:41)
[2018-06-03 05:25] LABS: ABS Basophils 0.2 10^3/ul (0-0.2); ABS Eosinophils 0.2 10^3/ul (0-0.6); ABS Lymphocytes 2.9 10^3/ul (1.0-4.8); ABS Monocytes 1.4 10^3/ul (0-0.8); ABS Neutrophils 8.5 10^3/ul (1.5-7.7); ABS Nucleated RBC 0 10^3/ul; Eosinophil % 1.5 % (0-6); Hematocrit 35 % (35-47); Hemoglobin 11.3 g/dl (12.0-16.0); Lymphocyte % 22.2 % (25-47); Mean Corpuscular HGB Conc 33 g/dl (31-36); Mean Corpuscular Hemoglobin 30 pg (27-31); Mean Corpuscular Volume 92 fL (80-97); Mean Platelet Volume 10.4 um3 (7.4-10.4); Nucleated Red Blood Cells % 0; Platelet Count 177 10^3/ul (150-450); Red Blood Count 3.76 10^6/ul (4.00-5.40); Red Cell Distribution Width 16 % (10.5-15); White Blood Count 13.1 10^3/ul (3.5-10.8)
[2018-06-03 05:40] LABS: EGFR Non-African American 119.2 (>60)
[2018-06-03] MEDS: Clopidogrel TAB* 75 MG PO SCH (08:28)
[2018-06-03] MEDS: levETIRAcetam TAB* 500 MG PO SCH (08:28)
[2018-06-03] MEDS: Aspirin 81 mg CHEW TAB* 81 MG TAB.CHEW PO SCH (08:28)
[2018-06-03] MEDS ORDERED: amLODIPine TAB* 5 MG PO SCH (09:00)
[2018-06-03] MEDS ORDERED: Metoprolol Succinate XL TAB* 50 MG PO SCH (09:00)
[2018-06-03] MEDS ORDERED: Magnesium Sulfate IV* 3 GM in NS 0.9% 100 ML* 100 ML IVPB ONE (09:34)
[2018-06-03 14:09] VITALS: BP 166/62
[2018-06-03] MEDS ORDERED: Losartan TAB* 25 MG PO SCH (18:00)
--- NOTE | 2018-06-03 20:50 | DS ---
CC: Dr. Keyur Martines; Juliana Infante NP; Dr. Kishan Nava * DISCHARGE SUMMARY: DATE OF ADMISSION: 06/01/18 DATE OF DISCHARGE: 06/03/18. PRIMARY CARE PROVIDER: Dr. Kishan Nava. MY ATTENDING WHILE IN THE HOSPITAL: Dr. Aman Em.* (DICTATED BY GEOVANNY ROBLERO) CONSULTING NEUROLOGIST: Dr. Keyur Martines. PRIMARY DISCHARGE DIAGNOSES: 1. Intermittent aphasia. 2. Lethargy. 3. Hypertensive urgency. 4. Concern for transient ischemic attack versus seizure. SECONDARY DISCHARGE DIAGNOSES: 1. Postprocedural hypothyroidism. 2. Hypertension. 3. Hyperlipidemia. STUDIES DONE WHILE IN THE HOSPITAL: Electrocardiogram from 06/01/18, read as normal sinus rhythm, early polarization in V2, V3, incomplete right bundle- branch block, left axis deviation. No ST segment abnormalities. No hypertrophy or enlargement. Brain CT from 06/01/18, read as negative for intracranial hemorrhage or compelling CT stigmata of acute or subacute ischemic stroke, generalized small vessel ischemic disease, and lacunar infarct in the anterior limb of the right internal capsule. Chest x-ray from 06/01/18, read as no evidence for acute disease. Transthoracic echocardiogram on 06/01/18, read as there is normal left ventricular systolic function, estimated ejection fraction 60 to 65%, global left ventricular wall motion and contractility within normal limits. Left ventricular chamber size is normal. Mild concentric left ventricular hypertrophy. Abnormal left ventricular diastolic function is observed consistent with impaired relaxation. Left atrium is mildly dilated, right atrium mildly dilated, mild aortic regurgitation, moderate mitral regurgitation , no prior echocardiogram to compare. 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 Carotid Doppler study from 06/01/18, read as minimal bilateral atherosclerotic plaque without resulting carotid stenosis based on NASCET criteria. Repeat brain CT from 06/02/18, read as chronic ischemic white matter changes, no acute changes are noted, no intracranial mass or hemorrhage. An old right basal ganglia infarct. Electroencephalogram from 06/02/18, read as awake EEG, no major abnormalities, mild slowing possibly secondary to age. No epileptiform discharges. MEDICATIONS AT DISCHARGE: 1. Melatonin 5 mg p.o. bedtime. 2. Aspirin 81 mg p.o. daily. 3. Levothyroxine 150 mcg p.o. daily. 4. Tylenol 650 mg p.o. q.6 hours as needed. 5. Amlodipine 5 mg p.o. daily. 6. Lipitor 40 mg p.o. daily. 7. Clopidogrel 75 mg p.o. daily. 8. Keppra 500 mg p.o. b.i.d. 9. Metoprolol succinate 25 mg p.o. daily. 10. Irbesartan 150 mg p.o. q.p.m. New medications at discharge: 1. Amlodipine. 2. Lipitor. 3. Clopidogrel. 4. Keppra. 5. Metoprolol. Medications discontinued at discharge: 1. Ibuprofen 200 mg p.o. q.8 hours as needed. 2. Metoprolol succinate 50 mg p.o. daily. HOSPITAL COURSE: This is a brief summary of the patient's presentation. For more details, please see the history and physical from Danette Jarquin NP, on . In brief, the patient is an 88-year-old female with past medical history significant for the above, who has recently been hospitalized twice for recurrent stereotypical episodes of neurological deficits including expressive aphasia, who was first seen at [facility] on 10/29/18 for a fall , loss of consciousness, and aphasia accompanied by weakness. The patient at that time had a CT angiogram of the neck, which showed no large vessel occlusion. Also, had a chest x-ray, which was within normal limits. The patient was not a tPA candidate. The patient was admitted to the hospital, started on aspirin. The patient had an MRI of the brain, which was unremarkable , echo with bubble study, lipid panel, hemoglobin A1c, a swallow study, and was seen by physical therapist and occupational therapist. The patient was found to have hyponatremia with a sodium of 127, which resolved quickly upon discontinuation of her hydrochlorothiazide. The patient had leukocytosis, which improved throughout her stay. The patient had no other signs of infection. The patient was started on salt tabs, which were discontinued at an unknown time. The patient had no neurological deficits on discharge. The patient had, throughout her hospitalization, a waxing and waning mental course consistent of delirium. The patient was told to liberalize sodium in her diet as well. The patient was asymptomatic except for elevated blood pressures from that time until she was admitted on 04/09/18 to [facility] due to knee pain. During which hospitalization, the patient had a similar episode of aphasia, negative CT as well as uncontrolled hypertension, which had resolved on the time of discharge. The patient during the hospitalization received triamcinolone injections in both of her knees, which helped with her chronic leg pain. The patient was sent from there as a short- term rehab, from which she was discharged to home. 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 The patient was asymptomatic from her discharge until she came in on 06/01/18, with expressive aphasia, again without other neurological deficits on exam. The patient was not able to give a last known well nor was her son. The patient was admitted to the hospital, imaging as above showing no obvious signs to explain her aphasia. The patient was admitted to have permissive hypertension; however, her blood pressure dropped spontaneously below to 149/47 as a low on 06/02/18, and she had another episode subsequently of aphasia. The patient was given a fluid bolus. Had a repeat CT of her head, which was negative as above. The patient was started on Keppra IV, transitioned to oral. Had an electroencephalogram for concern for stereotypic episodes of aphasia, which were not associated with any involuntary movements, negative EEG. It was recommended due to the patient's low systolic blood pressure and apparent intolerance of this low blood pressure that she be transitioned from metoprolol to a different agent for control of her blood pressure. The patient's Toprol dose was decreased from 50 mg daily to 25. The patient had amlodipine started and her irbesartan was switched to p.m. dosing for more consistent with blood pressure control. The patient, on day of 06/02/18, was lethargic, somewhat confused with a fluctuating mental status being falling asleep while talking to staff members as well as her family and lashing out at staff members when they offered help. This resolved quickly overnight from 06/02/18 to 06/03/18. The patient in the morning was entirely pleasant, oriented, had a normal breakfast, was able to ambulate with minimal assistance, and no signs of aphasia. Normal neurologic exam. The patient while in the hospital, started on aspirin and Plavix for concern for TIA as well as Keppra, which she was continued on. Overnight from 06/02/18 and 06/03/18, the patient had a blood pressure with a high of 210/88, which resolved with administration of hydralazine IV and stayed decreased with the addition of amlodipine to her antihypertensive regimen with her last blood pressure on discharge being 154/67. The patient was stable on the night of discharge on 06/03/18, to follow up with her primary care provider for ongoing blood pressure management, avoiding hypotension as well as following up with Dr. Martines, Neurology in one month for evaluation of her ongoing need for antiseizure medication and dual antiplatelet therapy. PHYSICAL EXAMINATION ON DAY OF DISCHARGE: General: The patient is an 88-year- old female, who appears stated age and sitting comfortably in bed, in no acute distress. Vital Signs: At the time of discharge, temperature 97.8, pulse rate 85, respiratory rate 20, oxygen saturation 95% on room air, blood pressure 154/67. HEENT: Head: Normocephalic, atraumatic. Sclerae are anicteric. No conjunctival injection. Nasal mucosa moist. Oral mucosa moist. No pharyngeal erythema, discharge or exudate. Neck: Supple, nontender. No lymphadenopathy. No carotid bruit auscultated. No JVD. Cardiac: Regular rate and rhythm. No clicks, murmurs, gallops or rubs. Pulses are 2+ bilaterally in dorsalis pedis, posterior tibialis, and radial areas. No bilateral lower extremity edema noted. No calf tenderness. Respiratory: Clear to auscultation bilaterally. No wheezes, rales or rhonchi. Good air exchange bilaterally. Abdomen: Soft, nontender, nondistended. Bowel sounds present, normoactive in all 4 quadrants. No hepatosplenomegaly. No abdominal bruits auscultated. No hepatojugular reflux. Genitourinary: No suprapubic or CVA tenderness. Skin: Clean, dry, and intact. No rash. Neurologic: Cranial nerves II through XII intact. No focal deficits. Alert and oriented x3. Psychiatric: Pleasant and cooperative. LABORATORY DATA: On day of discharge, white blood cell count 13.1, hemoglobin 11.3, platelet count 177. Sodium 136, potassium 4.2, chloride 105, carbon dioxide 24, anion gap 7, BUN 24, creatinine 0.49, glucose 91, calcium 9, magnesium 1.7. Other laboratory data of note from admission, LDL cholesterol 101 , HDL cholesterol 56.5. Troponin I initially at 0.01. Vitamin B12 of 336, folate 115.28, iron 83, TIBC is 361, percent saturation 23, ferritin 30.2. Urine unremarkable. DISCHARGE PLAN: The patient will be discharged to home. The patient should have close followup with her primary care provider and home nursing agency for control of her blood pressure. The patient should be tapered off of her metoprolol for at least 1 week with increasing of her amlodipine during that time for control of her blood pressure. Per neurological recommendation, the patient should monitor closely for repeat episodes of aphasia. The patient should continue taking her Keppra for control of what could possibly be a seizure disorder. The patient should follow up with Dr. Martines in one month after discharge for neurological evaluation. The patient should take her dual antiplatelet therapy as prescribed as well as her antiplatelet medication. The patient should have a heart healthy diet, less caffeine. The patient should avoid liberalizing salt in her diet. The patient should not be reintroduced on two hydrochlorothiazide due to previous hyponatremia. The patient should return to the hospital for new onset aphasia, weakness, involuntary movement, syncope, chest pain, shortness of breath or other alarming symptoms. TIME SPENT: Approximately 60 minutes was spent on this discharge, 30 of which was spent [id number] with the patient obtaining history and physical and discussing treatment plan. GEOVANNY ROBLERO [id number]/[facility] #: [id number] SANAZ
== END 2018-06-03 15:01 | disposition home or self-care (01) | DRG 92 ==
LOC: ED 15:08 → MEDTELE 18:57
PROVIDERS: ADMIT Internal Medicine; ATTEND Internal Medicine
DX: R47.01 Aphasia (principal); G45.9 Transient cerebral ischemic attack, unspecified; G45.1 Carotid artery syndrome (hemispheric); R53.83 Other fatigue; I16.0 Hypertensive urgency; R56.9 Unspecified convulsions; E89.0 Postprocedural hypothyroidism; E78.5 Hyperlipidemia, unspecified; M17.11 Unilateral primary osteoarthritis, right knee; M19.011 Primary osteoarthritis, right shoulder; I25.10 Atherosclerotic heart disease of native coronary artery without angina pectoris; Z66 Do not resuscitate; R41.0 Disorientation, unspecified; I11.9 Hypertensive heart disease without heart failure; Z85.850 Personal history of malignant neoplasm of thyroid; Z79.1 Long term (current) use of non-steroidal anti-inflammatories (NSAID); Z79.82 Long term (current) use of aspirin; Z79.899 Other long term (current) drug therapy; Z88.5 Allergy status to narcotic agent; Z80.0 Family history of malignant neoplasm of digestive organs
CPT/HCPCS: 36415; 70450; 70551; 71045; 80048; 80053; 80061; 81003; 82607; 82728; 82746; 83036; 83540; 83550; 83605; 83735; 83921; 84443; 84484; 85025; 85610; 85730; 93005; 93306; 93880; 95819; 99283; A9270-GY; J0360; J1644; J3475

== ENCOUNTER 2019-01-24 16:41 | Emergency (ER) | payer MEDICARE ==
[2019-01-24 18:40] VITALS: BP 181/68
--- NOTE | 2019-01-24 18:49 | UC ---
Lower Extremity/Ankle HPI - HPI Summary HPI Summary: 88-year-old woman comes in with a chief complaint of right lower leg ecchymosis and swelling. This started 3 days ago. Patient occasionally has episodes where she does not remember what happened. The patient does not remember what happened. No known fall per care providers. The pain and swelling is all in the front of the lower leg. Over time the ecchymosis and swelling is spread down into the right ankle. Patient does minimal weightbearing. There is no pain or swelling in the posterior aspect of the leg. She has chronic knee pain. - History of Current Complaint Chief Complaint: UCLowerExtremity Stated Complaint: RIGHT LEG INJURY Time Seen by Provider: 01/24/19 18:37 Pain Intensity: 0 - Allergies/Home Medications Allergies/Adverse Reactions: Allergies Allergy/AdvReac Type Severity Reaction Status Date / Time acetaminophen [From Percocet] Allergy Nausea Verified 01/24/19 18:29 codeine Allergy Nausea And Verified 01/24/19 18:28 Vomiting oxycodone [From Percocet] Allergy Nausea Verified 01/24/19 18:29 Home Medications: Home Medications Ibuprofen TAB* [Advil TAB*] 800 mg BEDTIME PRN 01/24/19 [History Confirmed 01/24] PMH/Surg Hx/FS Hx/Imm Hx Previously Healthy: Yes Cardiovascular History: Hypertension - Surgical History Surgical History: Yes Surgery Procedure, Year, and Place: thyroidectomy; bladder tuck; hysterectomy; cholecysectomy; nodule removed from adrenal glands; tonsilectomy - Family History Known Family History: Negative: Blood Disorder - Social History Alcohol Use: None Substance Use Type: None Smoking Status (MU): Never Smoked Tobacco - Immunization History Most Recent Influenza Vaccination: fall 2016 Most Recent Pneumonia Vaccination: unknown date Review of Systems All Other Systems Reviewed And Are Negative: Yes Constitutional: Positive: Negative Skin: Positive: Bruising - SEE HPI Eyes: Positive: Negative ENT: Positive: Negative Respiratory: Positive: Negative Cardiovascular: Positive: Negative Gastrointestinal: Positive: Negative Motor: Positive: Negative Neurovascular: Positive: Negative Musculoskeletal: Positive: Other: - SEE HPI Neurological: Positive: Negative Psychological: Positive: Negative Is Patient Immunocompromised?: No Physical Exam Triage Information Reviewed: Yes Appearance: Well-Appearing, No Pain Distress, Well-Nourished Vital Signs: Initial Vital Signs Temp 98 F 01/24/19 18:32 Pulse 81 01/24/19 18:32 Resp 16 01/24/19 18:32 BP 181/68 01/24/19 18:32 Pulse Ox 98 01/24/19 18:32 Vital Signs Reviewed: Yes Eye Exam: Normal Eyes: Positive: Conjunctiva Clear Neck: Positive: Supple Respiratory: Positive: No respiratory distress Musculoskeletal: Positive: Other: - Right lower leg has swelling and ecchymosis on the anterior aspect. There is no drainage. It is not hot to touch. The area is approximately 10 cm x 5 cm. The ecchymosis tracks down into the right ankle and foot. The right anterior suarez is tender to palpation approximately mid shaft. The posterior leg in the calf and the popliteal portion of the knee is nontender to palpation and not swollen. Knee has minimal tenderness to palpation which the patient and family report has chronic. Normal capillary refill in the foot no sensation deficits normal pulses. Neurological Exam: Normal Neurological: Positive: Alert, Muscle Tone Normal Psychological Exam: Normal Psychological: Positive: Normal Response To Family, Age Appropriate Behavior Lower Extremity Course/Dx - Course Course Of Treatment: I reviewed the x-rays with the patient I reviewed the x- rays with the patient and her family. I do not see any fracture radiologist reading is pending. The pain and swelling all anterior. No calf pain or popliteal pain. Based on examination there is no evidence of a deep venous thrombosis at this time. No evidence of infection the area is not hot there is no erythema. This was all discussed with the patient and her family. I let them know if she has any calf pain or any signs of infection she needs to get reevaluated again right away. - Differential Dx/Diagnosis Provider Diagnosis: Contusion of lower leg, right Discharge - Sign-Out/Discharge Documenting (check all that apply): Patient Departure All imaging exams completed and their final reports reviewed: No - Discharge Plan Condition: Stable Disposition: HOME Patient Education Materials: Contusion in Adults (ED) Referrals: Isauro Almaraz DO [Primary Care Provider] - Additional Instructions: FOLLOW UP WITH YOUR DOCTOR. GET RECHECKED FOR ANY WORSENING OF YOUR CONDITION; SIGNS OF INFECTION, PAIN OR SWELLING IN THE CALF OR QUESTIONS OR CONCERNS. - Billing Disposition and Condition Condition: STABLE Disposition: Home
--- NOTE | 2019-01-25 08:42 | UC ---
- EKG/XRAY/CT Xray Comments: no fxs noted Course/Dx - Diagnoses Provider Diagnoses: Contusion of lower leg, right Discharge - Sign-Out/Discharge Documenting (check all that apply): Post-Discharge Follow Up All imaging exams completed and their final reports reviewed: Yes - Discharge Plan Condition: Stable Disposition: HOME Patient Education Materials: Contusion in Adults (ED) Referrals: Isauro Almaraz DO [Primary Care Provider] - Additional Instructions: FOLLOW UP WITH YOUR DOCTOR. GET RECHECKED FOR ANY WORSENING OF YOUR CONDITION; SIGNS OF INFECTION, PAIN OR SWELLING IN THE CALF OR QUESTIONS OR CONCERNS. - Billing Disposition and Condition Condition: STABLE Disposition: Home
== END 2019-01-24 19:34 | disposition home or self-care (01) ==
LOC: UCCORT 16:41
DX: S80.11XA Contusion of right lower leg, initial encounter (principal); I10 Essential (primary) hypertension; Z88.5 Allergy status to narcotic agent; X58.XXXA Exposure to other specified factors, initial encounter; Y92.9 Unspecified place or not applicable
CPT/HCPCS: 99211; G0463

== ENCOUNTER 2019-02-15 14:14 | Inpatient (IN) | payer MEDICARE ==
[2019-02-15] MEDS ORDERED: NS 0.9% 1000 ML** 1,000 ML IV ONE (14:18)
--- NOTE | 2019-02-15 14:28 | ED ---
Neurological HPI - HPI Summary HPI Summary: This pt is an 88 y/o female presenting to [facility] brought to the ED by Dr. Martines for left sided weakness. Pt was at Dr. Martines's office for an evaluation today. Family reports pt was last well seen at 22:00 last night when pt went to bed. Per family, pt was alert and oriented last night. Per family, pt was mumbling in the middle of the night. Pt at baseline does not move very much and can't get herself up, per family members. This morning upon waking up family noticed the pt was "off" and pt couldn't eat with her left hand. Family notes the pt had a sonogram last night at [facility] and also had blood drawn. Her US was negative for DVT. - History of Current Complaint Stated Complaint: ACUTE STROKE PER PHYS. Time Seen by Provider: 02/15/19 14:18 Hx Obtained From: Patient, Family/Elevator Service Technician Onset/Duration: Sudden Onset, Still Present Timing: Sudden Onset Current Severity: Moderate Neurological Deficit Location: LUE Pain Intensity: 0 - denies pain Pain Scale Used: 0-10 Numeric Character: Weak - left sided Aggravating: Nothing Alleviating: Other Associated Signs and Symptoms: Positive: Weakness - Additional Pertinent History Primary Care Physician: [id number] - Allergy/Home Medications Allergies/Adverse Reactions: Allergies Allergy/AdvReac Type Severity Reaction Status Date / Time acetaminophen [From Percocet] Allergy Nausea Verified 01/24/19 18:29 codeine Allergy Nausea And Verified 01/24/19 18:28 Vomiting oxycodone [From Percocet] Allergy Nausea Verified 01/24/19 18:29 PMH/Surg Hx/FS Hx/Imm Hx Endocrine/Hematology History: Reports: Hx Thyroid Disease - hypothyroid d/t thyroidectomy Denies: Hx Diabetes Cardiovascular History: Reports: Hx Coronary Artery Disease, Hx Hypercholesterolemia, Hx Hypertension Denies: Hx Pacemaker/ICD History: Reports: Other Problems/Disorders - bladder tuck Musculoskeletal History: Reports: Hx Arthritis - OA, RA Sensory History: Reports: Hx Contacts or Glasses, Hx Hearing Aid Denies: Hx Deafness Opthamlomology History: Reports: Hx Contacts or Glasses Psychiatric History: Denies: Hx Panic Disorder - Cancer History Cancer Type, Location and Year: thyroid - Surgical History Surgery Procedure, Year, and Place: thyroidectomy; bladder tuck; hysterectomy; cholecysectomy; nodule removed from adrenal glands; tonsilectomy - Family History Known Family History: Negative: Blood Disorder - Social History Alcohol Use: None Substance Use Type: Reports: None Smoking Status (MU): Never Smoked Tobacco Review of Systems Negative: Fever, Chills Positive: Weakness - left sided All Other Systems Reviewed And Are Negative: Yes Physical Exam - Summary Physical Exam Summary: Appearance: Well appearing, Skin: warm, dry, reflects adequate perfusion Head/face: normal Eyes: EOMI, ZEE ENT: normal Neck: supple, non-tender Respiratory: CTA, breath sounds present Cardiovascular: RRR, pulses symmetrical Abdomen: non-tender, soft Musculoskeletal: PULSE B/L Neuro: A&Ox3, left sided weakness. GCS: 15 Triage Information Reviewed: Yes Vital Signs On Initial Exam: Initial Vitals Temp Pulse Resp BP Pulse Ox 97.8 F 91 16 183/65 98 02/15/19 14:52 02/15/19 14:52 02/15/19 14:52 02/15/19 14:52 02/15/19 14:52 Vital Signs Reviewed: Yes Diagnostics - Laboratory Result Diagrams: 02/15/19 15:15 02/15/19 15:15 Lab Statement: Any lab studies that have been ordered have been reviewed, and results considered in the medical decision making process. - Radiology Chest XR Radiology Interpretation Completed By: Radiologist Summary of Radiographic Findings: IMPRESSION: No active cardiopulmonary disease is noted. Dr. Leroy has reviewed this report. - CT Brain CT CT Interpretation Completed By: Radiologist Summary of CT Findings: IMPRESSION: 1. No acute intracranial pathology. 2. Chronic small vessel ischemic change. Preliminary findings were discussed with Dr. Leroy in the the emergency department at approximately 2:40 PM on January. CTA Head/Neck CT Interpretation Completed By: Radiologist Summary of CT Findings: IMPRESSION: 1. Atherosclerosis. 2. No internal carotid artery stenosis by nascet criteria. 3. No aneurysm, vascular malformation, occlusion, or stenosis of the visualized intracranial circulation. Dr. Leroy has reviewed this report. - EKG 15:09 Cardiac Rate: NL - at 90 bpm EKG Rhythm: Sinus Rhythm Summary of EKG Findings: No acute changes. NIH Scale - NIH Scale Level of Consciousness: Alert/Keenly Responsive Ask Patient the Month and His/Her Age: Both Correct Ask Pt to Open/Close Eyes and Clerical Coordinator/Release Non-Paretic Hand: Both Correctly Best Gaze (Only Horizontal Eye Movement): Partial Gaze Palsy Visual Field Testing: Partial Hemianopia Facial Paresis-Pt to Smile & Close Eyes or Grimace Symmetry: Partial Paralysis Motor Function - Right Arm: No Drift-Holds 10 Seconds Motor Function - Left Arm: Effort Against [place] Motor Function - Right Leg: Drifts LT 10 seconds Motor Function - Left Leg: Drifts LT 10 seconds Limb Ataxia-Must be out of Proportion to Weakness Present: Absent Sensory (Use Pinprick to Test Arms/Legs/Trunk/Face): Pinprick Less on Affected Best Language (Describe Picture, Name Items): No Aphasia Dysarthria (Read Several Words): Normal Extinction and Inattention: Inattention Total Score: 10 Course/Dx - Course Course Of Treatment: Eliseo Schilling called at 14:20. Dr. Martines and Dr. Leroy immediately at bedside. Pt to CT at 14:30. Dr. Serrato, radiologist, reports brain CT at 14:40. Pt returns from CT at 14:48. Assessment/Plan: Pt is an 88 y/o female brought to the ED by Dr. Martines for left sided weakness. Last well seen was at 22:00 last night. Pt had blood work done at [facility] yesterday. Brain CT shows 1. No acute intracranial pathology. 2. Chronic small vessel ischemic change. Chest XR is negative. CTA Head/neck shows 1. Atherosclerosis. 2. No internal carotid artery stenosis by nascet criteria. 3. No aneurysm, vascular malformation, occlusion, or stenosis of the visualized intracranial circulation. Dr. Quach saw and evaluated the pt in the ED. Discussed the case with Dr. Trent, hospitalist, who accepted the pt for admission. - Diagnoses Provider Diagnoses: CVA (cerebral vascular accident) During the Visit The Following Alert/Code Occurred: Eliseo Schilling - at 14:20 - Physician Notifications Discussed Care Of Patient With: Remington Serrato Time Discussed With Above Provider: 14:40 Instructed by Provider To: Other - Dr. Serrato, radiologist, reports brain CT results. [15:15] Discussed with Dr. Trent, hospitalist, who accepted the pt for admission. Discharge - Sign-Out/Discharge Documenting (check all that apply): Patient Departure - Admit to [facility] Patient Received Moderate/Deep Sedation with Procedure: No - Discharge Plan Condition: Stable Disposition: ADMITTED TO [facility] Referrals: Isauro Almaraz DO [Primary Care Provider] - - Billing Disposition and Condition Condition: STABLE Disposition: Admitted to [facility] - Attestation Statements Document Initiated by Akosua: Yes Documenting Scribe: Ingrid Mcmanus Provider For Whom Akosua is Documenting (Include Credential): Augusto Leroy MD Scribe Attestation: Ingrid Humphrey, scribed for Augusto Leroy MD on 02/15/19 at 1623. Scribe Documentation Reviewed: Yes Provider Attestation: The documentation as recorded by the Ingrid wong accurately reflects the service I personally performed and the decisions made by , Augusto Leroy MD Status of Scribe Document: Viewed
[2019-02-15] MEDS ORDERED: Iodixanol* (CONTRAST) 320 MG/ML 100 ML SDV IV ONE (14:34)
--- OUTSIDE RECORDS SUMMARY | 2019-02-15 14:58 | XMS REPORT | Continuity of Care Document ---
:1930 External Reference #:[id number] Author Name Mer Calles NP Address [address] [place] [address] Care Team Providers Name Role Phone Isauro Almaraz D.O. Care Team Information Algorithm Developer Unavailable Isauro Almaraz D.O. Primary Care Physician Unavailable Payers Date Identification Numbers Payment Provider Subscriber Policy Number: [id number] [facility] Cristela Thorpe PayID: [id number] [address] [address] [place] [address] Advance Directives Description No Information Available Problems Description No Information Family History Date Family Member(s) Observation Comments Father due to Cancer () - age 72 Mother due to Heart Disease () - age 93 First Brother due to blood clot () - age 70 Social History Type Date Description Comments Sex Unknown Tobacco Use Start: Unknown Never Smoked Cigarettes ETOH Use Never used alcohol Recreational Drug Use Denies Drug Use Allergies, Adverse Reactions, Alerts Date Description Reaction Status Severity Comments 01/25/2019 Codeine Active 01/25/2019 Percocet Active Medications Medication Date Status Form Strength Qnty SIG Indications Ordering Provider Synthroid // Active Tablets 175mcg Once in Almaraz,Isauro 0000 morning D.O. Amlodipine 00/ Active Tablets 5mg Once a Almaraz,Isauro Besylate 0000 day D.O. Metoprolol / Active Tablets ER 25mg Once Almaraz,Isauro Succinate ER 0000 24HR daily D.O. Levetiracetam / Active Solution 500mg/5ML Twice a Conrad, 0000 day MD Keyur Irbesartan 00/00/ Active Tablets 150mg Once Sung,Isauro 0000 daily D.O. Atorvastatin / Active Tablets 40mg Once Almaraz,Isauro Calcium 0000 daily D.O. Clopidogrel 00/00/ Active Tablets 75mg 1 by Unknown Bisulfate 0000 mouth every day Immunizations Description No Information Available Vital Signs Date Vital Result Comment 01/25/2019 1:14pm Weight 138.00 lb Height 60 inches 5'0" BMI (Body Mass Index) 26.9 kg/m2 BP Systolic 171 mmHg BP Diastolic 78 mmHg Heart Rate 86 /min O2 % BldC Oximetry 96 % Body Temperature 97.8 F Pain Level 0 Results Description No Information Available Procedures Date Code Description Status 01/25/2019 59971 Remove Impacted Cerumen Completed Encounters Type Date Location Provider Dx Diagnosis Office Visit 01/25/2019 Main Office Mer Calles, H61.23 Impacted cerumen, 1:30p BOX GLUER bilateral Plan of Treatment No Information Available
--- OUTSIDE RECORDS SUMMARY | 2019-02-15 14:58 | XMS REPORT | Continuity of Care Document ---
:1930 External Reference #:[id number] Author Name Tonya Quesada Care Team Providers Name Role Phone Isauro Almaraz D.O. Care Team Information Grievance And Appeals Coordinator Unavailable Isauro Almaraz D.O. Primary Care Physician Unavailable Payers Date Identification Numbers Payment Provider Subscriber Policy Number: [id number] [facility] PayID: [id number] [address] [address] [place] [address] Advance Directives Description No Information Available Problems Description No Information Family History Description No Information Available Social History Type Date Description Comments Sex Unknown Allergies, Adverse Reactions, Alerts Date Description Reaction Status Severity Comments 01/25/2019 Codeine Active 01/25/2019 Percocet Active Medications Medication Date Status Form Strength Qnty SIG Indications Ordering Provider Synthroid 00/00/ Active Tablets 175mcg Once in Almaraz,Isauro 0000 morning D.O. Amlodipine 00/00/ Active Tablets 5mg Once a Almaraz,Isauro Besylate 0000 day D.O. Metoprolol 00/00/ Active Tablets ER 25mg Once Almaraz,Isauro Succinate ER 0000 24HR daily D.O. Levetiracetam 00/ Active Solution 500mg/5ML Twice a Conrad, 0000 day MD Keyur Irbesartan 00/00/ Active Tablets 150mg Once Almaraz,Isauro 0000 daily D.O. Atorvastatin 00/00/ Active Tablets 40mg Once Almaraz,Isauro Calcium 0000 [...] 0 Results Description No Information Available Procedures Description No Information Available Encounters Description No Information Available Plan of Treatment No Information Available
[2019-02-15] MEDS ORDERED: Ondansetron INJ* 2 MG/ML VIAL IV PRN (15:12)
[2019-02-15] MEDS ORDERED: Aspirin 81 mg CHEW TAB* 81 MG TAB.CHEW PO ONE (15:17)
[2019-02-15 15:27] LABS: ABS Basophils 0 10^3/ul (0-0.2); ABS Eosinophils 0.1 10^3/ul (0-0.6); ABS Lymphocytes 1.3 10^3/ul (1.0-4.8); ABS Monocytes 0.8 10^3/ul (0-0.8); ABS Neutrophils 10.2 10^3/ul (1.5-7.7); ABS Nucleated RBC 0 10^3/ul; Eosinophil % 0.5 %; Hematocrit 32 % (33-41); Hemoglobin 10.5 g/dL (12.0-16.0); Lymphocyte % 10.7 %; Mean Corpuscular HGB Conc 33 g/dL (31-36); Mean Corpuscular Hemoglobin 30 pg (27-31); Mean Corpuscular Volume 92 fL (80-97); Nucleated Red Blood Cells % 0.1; Platelet Count 187 10^3/uL (150-450); Red Blood Count 3.51 10^6 /uL (3.70-4.87); Red Cell Distribution Width 14 % (10.5-15); White Blood Count 12.5 10^3/uL (3.5-10.8)
[2019-02-15 15:39] LABS: Activated Partial Thrombo Time 30.3 seconds (26.0-36.3); INR 0.97 (0.77-1.02)
[2019-02-15 15:48] LABS: Albumin 3.6 g/dL (3.2-5.2); Albumin/Globulin Ratio 1.1 (1-3); BUN/Creatinine Ratio 49.2 (8-20); Calcium 8.9 mg/dL (8.6-10.3); EGFR African American 116.4 (>60); EGFR Non-African American 96.2 (>60); Globulin 3.2 g/dL (2-4); HDL Cholesterol 52.6 mg/dL; Potassium 4.7 mmol/L (3.5-5.0); Total Bilirubin 0.3 mg/dL (0.2-1.0); Total Protein 6.8 g/dL (6.4-8.9)
[2019-02-15 15:49] LABS: Troponin I 0.01 ng/mL (<0.04)
[2019-02-15 16:08] LABS: TSH (Thyroid Stimulating Horm) 3.67 mcIU/mL (0.34-5.60)
[2019-02-15] MEDS: ceFAZolin 1 GM ADVAN(*) 1 GM in NS 0.9% 50 ML* 50 ML IVPB SCH (17:15)
[2019-02-15] MEDS: Atorvastatin* 40 MG TAB PO SCH (17:16)
--- NOTE | 2019-02-15 18:01 | CONS ---
CC: Dr. Almaraz; Dr. Martines * CONSULTATION REPORT: DATE OF CONSULT: 02/15/19 PRIMARY CARE PROVIDER: Dr. Almaraz. NEUROLOGIST: Dr. Martines. REASON FOR CONSULT: TIA-like symptoms, possible stroke. HISTORY OF PRESENT ILLNESS: Ms. Thorpe is a very nice 88-year-old female who has a known history of hypertension; history of thyroid cancer, status post thyroidectomy; hypothyroidism; osteoarthritis versus rheumatoid arthritis, was previously treated with methotrexate; apparently some cardiac insufficiency. She is followed by Dr. Martines in clinic and was actually there today when she and her family related history that was concerning for a stroke. The patient has a very complicated neurologic history. She has been admitted in the past for TIA-like symptoms. She was admitted back on 06/01/18. At that time, she was having some stereotypical movements including mumbling, but she was also having some expressive aphasia, had been seen at [facility] in October [facility] for a fall and loss of consciousness with some aphasia and weakness. Review of past records note that she had had a CT angiogram of the neck, which showed no large-vessel occlusion and was not a tPA candidate. Stroke workup, it appears was negative at that time. She did have some hyponatremia. During her workup, in May 2018, her stroke workup was largely negative. She had hyponatremia of 127. She had waxing and waning delirium. She did have an episode of aphasia with a negative CT scan. She was hospitalized in March 2018 at [facility] for uncontrolled hypertension, also had an episode of aphasia with a negative CT scan. When she was admitted on 06/01/18, she came in with some expressive aphasia, followed by another episode of aphasia. There was concern initially for TIA. Subsequently though, it was felt that she might be having seizure-like episodes. She did have a negative EEG for any seizures, but she was started on Keppra for continued episodes of some confusion. At one point she lashed out the staff members in the hospital. She was started on aspirin and Plavix for a TIA concern and Keppra and discharged home on dual-antiplatelet therapy. She has seen Dr. Martines and the family reports that she has had several other episodes of aphasia. Apparently, the patient had an injection in her right shoulder at one point and the family notes that after that time, she had difficulty moving her right arm, which was basically unusable and she had been using her left arm and hand to manipulate things. She also has difficulty walking due to arthritis. She was taken to the ER in [place] yesterday for a swollen right leg, concern for cellulitis. She was put on cephalexin and sent home. She went to bed at around 10 p.m. last night, which was her last normal. Her son states that he heard her mumbling and moving in her room and she was doing her "thing that she does" whenever she has seizure-like activity. This morning, she woke up and apparently was having more difficulty using her left hand. The family states that she was able to eat breakfast, but by lunchtime, she was having a very hard time using her left hand. She was also having more mental status change. When she came to see Dr. Martines today in clinic, he was concerned for a possibility of stroke. She was brought down to the ER where a km garvey was called. Subsequent CT scan of the head showed no acute abnormality. CT angiogram of the head and neck showed no large-vessel disease, no intracranial stenosis. She was outside of the tPA window, but was possibly within clot retrieval window, although there was no large-vessel occlusion. She has remained somewhat confused. NIH scale done in the ER of 10. She did have some gaze preference to the right and what looks like a visual defect on the left. Throughout my examination, it was very difficult to get her to comply. She has some flexion posturing of her left arm. Concern at this point was for stroke versus seizure, Davis paralysis. She is going to be admitted to the hospital for further evaluation and workup. PAST MEDICAL HISTORY: As noted above. PAST SURGICAL HISTORY: Includes thyroid removal, cataract surgery, hysterectomy , bladder tuck. MEDICATIONS: Her medications currently at home include: 1. Plavix 75 mg a day. 2. Lipitor 40 mg a day. 3. Keppra 500 mg p.o. b.i.d. 4. Amlodipine 5 mg daily. 5. Metoprolol XL 25 mg daily. 6. Levothyroxine 175 mcg daily. 7. Avapro 150 mg p.o. q.p.m. FAMILY HISTORY: Significant for mother who lived to be 92 and a dad who had colon cancer. SOCIAL HISTORY: No tobacco, alcohol, or drug use. Her daughter reports that she did smoke in the distant past. She lives with her daughter and son. Her daughter is the healthcare proxy. REVIEW OF SYSTEMS: Review of systems in 14 organ systems was difficult due to her mental status, but the family notes that she has had no recent fevers, chills, headaches, night sweats, nausea, vomiting, diarrhea, constipation, recent illness, recent travel, recent insect bites, rash except for the swelling in her right lower extremity. She has had no joana seizure-like activity. She is at baseline, incontinent of bladder. No tongue biting. She does have diffuse musculo-skeletal aches related to her arthritis and she is not typically ambulatory. She has had no problem swallowing and in general no problem speaking or changes in her voice. Family has noted no obvious facial droop. PHYSICAL EXAM: Vital Signs: Temp of 97.8, pulse of 91, respiratory rate of 16 , O2 sat of 98% on room air, blood pressure 181/68 to 183/65. In general, she is a very frail thin female in no acute distress. She is lying in her hospital [facility]. Her family is at the bedside including her daughter and son. She is somewhat somnolent, but awakens and does answer questions appropriately, although she has some difficulty understanding and is very hard of hearing. She is normocephalic, atraumatic. Sclerae are anicteric. Mucous membranes are slightly dry. Oropharynx is clear. Nares are patent. Neck is supple. No thyromegaly. No carotid bruits. Chest: Clear to auscultation bilaterally. Cardiovascular: Regular rate and rhythm without murmurs. Abdomen is nontender. Extremities: There is no cyanosis or clubbing. She does have 1 to 2+ edema of the lower extremities with some redness and swelling greater on the right than the left. She also has diffuse body aches in the arms and legs and joints. On neurologic exam, she is awake and alert. She appears to be oriented to person, place, and time, although she was somnolent and sometimes had a hard time hearing and could not answer correctly. Her speech is slightly dysarthric , but fluent. Cranial Nerves: Pupils were equally round and reactive to light. Extraocular muscles appear to be intact, but she has definite right gaze preference. She is able to look over to the left at times. She appears to have a visual field deficit to a confrontation exam, although it was a difficult examination on the left side. Her face appears symmetric. Hearing is markedly diminished bilaterally. Tongue is midline. Palate raises symmetrically. Her motor exam is difficult. She has limited range of motion in the right upper extremity with some resistance. She has no specific drift in the right upper extremity. In the left upper extremity, she has some flexion posturing with increased tone. She is able to straighten her arm. She has weakness in that arm and hand. She is able to barely squeeze my fingers in the left hand and she cannot raise her left arm off the bed. In her right leg, she was able to lift it off the bed and give good resistance 4+/5 proximally and distally, but there was some drift in the left leg, she was able to raise her leg off the bed with drift after 5 seconds, 4+ proximally and distally. She does have some extension posturing of her feet bilaterally with increased tone in her ankles and lower legs. DTRs were down in the patella bilaterally, ankles were absent. Equivocal Babinski's in the left biceps. She was 2+ in the right biceps. She was trace left brachioradialis 2+, right trace. Finger- to-nose and rapid alternating movements could not be tested. She did not have any resting tremor appreciated. Her gait could not be tested at this time. DIAGNOSTIC DATA/LAB DATA: Lab work is pending at this time. Her glucose was 130. Apparently, labs were received from [place] yesterday and showed a normal kidney function. Her imaging as noted above showed no obvious acute abnormalities on CT scan, some chronic small-vessel changes. Her CT angiogram showed no large-vessel occlusion or dissection stenosis. No intracranial vascular malformations, occlusions, or stenosis or aneurysms. She did have an MRI done on record back on 06/01/18. At that time, she had no evidence for acute or subacute ischemia or other intracranial process. Mild involutional change and stigmata of chronic small- vessel ischemic disease. Chronic lacunar infarct at the right basal ganglia. Films: The recent CT and CT angiogram were reviewed by me and agree. She did have a foot x-ray here on 01/24/19, which showed limited study, no fracture. ASSESSMENT AND PLAN: Ms. Thorpe is an 88-year-old female with a complicated medical history including hypertension, hypothyroidism, previous transient ischemic attacks versus strokes versus seizures. She was on Plavix at home, also on Keppra with occasional episodes of aphasia and some confusion. She has chronic weakness of her right upper extremity after a shoulder injection in the past. She has a difficult time walking due to arthritis, but normally is able to use her left hand and arm without difficulty. Apparently went to the ER in [place] yesterday for possible cellulitis of the right leg and was discharged home on some oral antibiotics. She went to bed normal last night, but her son heard her make some mumbling noises and movements in the night, which he notes has happened before when she had "seizures." This morning when she got up, she was having more difficulty using her left side, which seems to have progressed to the point that she is not able to use her left arm at all. She also was having some intermittent confusion. No tongue biting. No bladder incontinence that the family is aware of, although she is incontinent generally. At this point, I have concern for possible stroke, although given her history, a Davis's paralysis after a seizure is certainly possible as well. The plan is to admit her for an MRI of the brain, to get an echocardiogram, to check blood work and allow for some permissive hypertension at this point with parameters. We will continue her Plavix and add aspirin for now, 81 mg. Check her lipids. Order physical therapy, speech therapy, and occupational therapy. The plan is to get another EEG, to check a Keppra level, to put her on seizure precautions and monitor with frequent neuro checks. We are going to get a swallowing study and keep her n.p.o. I am uncertain at this point whether this represents a stroke, MRI should be able to help differentiate. We will monitor her closely and I will make further recommendations as necessary. Thank you for the opportunity to participate in the care of this very nice patient. [id number]/[facility] #: [id number] SANAZ
[2019-02-15 18:30] LABS: Urine Appearance Clear; Urine Bacteria Absent (Absent); Urine Bilirubin Negative (Negative); Urine Blood Negative (Negative); Urine Color Yellow; Urine Glucose Negative (Negative); Urine Ketones Negative (Negative); Urine Nitrite Negative (Negative); Urine Protein 2+(100 mg/dL) (Negative); Urine Red Blood Cell Absent (Absent); Urine Specific Gravity 1.028 (1.010-1.030); Urine Urobilinogen Negative (Negative); Urine White Blood Cell Absent (Absent)
[2019-02-15] MEDS ORDERED: Acetaminophen TAB* 325 MG PO ONE (18:53)
--- NOTE | 2019-02-15 19:06 | HP ---
CC: Dr. Almaraz; Dr. Quach * HISTORY AND PHYSICAL: DATE OF ADMISSION: 02/15/19 PRIMARY CARE PROVIDER: Dr. Almaraz from [place]. ATTENDING PHYSICIAN WHILE IN THE HOSPITAL: Dr. Trent * (report dictated by Contreras Ramos NP). CHIEF COMPLAINT: Left-sided weakness. HISTORY OF PRESENT ILLNESS: Mrs. Thorpe is an 88-year-old female patient who has a past medical history significant for hypertension, thyroid cancer status post thyroidectomy, who has a longstanding history of episodes of mumbling and confusion dating back well over a year, who comes in today. It was noted that last night she went to bed, she was at her baseline. Her family that lives with her noted that in the middle of the night, they started hearing mumbling. They heard her thrashing in bed consistent with her previous episodes of mumbling and confusion at times. They heard the mumbling. She awoke this morning and the family noticed that her left side appeared to be weak. She was able to hold onto things, but then they noticed as the day progressed, she was getting weaker and weaker, particularly in the left side. She was dropping things. She was not really moving her left side, which normally she does. She has chronic right-sided arm weakness, which is attributed to arthritis in her right shoulder and also has right knee weakness. The family was concerned. They had an appointment with her neurologist, Dr. Martines, today. When he evaluated her, there was immediately a concern for possible stroke and was taken to the ER. The family notes that her speech is off as well. It was questionable of her having visual changes in her left side. There were no reports of urinary incontinence or tongue biting today and no reports of change in medication with the exception she is on Keflex now for a possible cellulitis , which she was diagnosed with at [facility]. Family does give a history of the fact that she has been dealing with right leg pain and redness. She had a sonogram yesterday at [facility], according to the family, which was negative. We will try to get those records. There were no reports of chest pain or shortness of breath. There were no reports of a facial droop by the family, but they were concerned because the left arm and left leg was weak. PAST MEDICAL HISTORY: Again is significant for: 1. Hypertension. 2. Hypothyroidism. 3. Osteoarthritis. 4. History of rheumatoid arthritis. 5. Valvular heart disease. 6. Carotid artery disease. PAST SURGICAL HISTORY: She has had a thyroidectomy, cholecystectomy, hysterectomy, bladder tuck. MEDICATIONS: Home meds according to the written list provided include: 1. Clopidogrel 75 mg daily. 2. Lipitor 40 mg daily. 3. Keppra 500 mg p.o. b.i.d. 4. Amlodipine 5 mg daily. 5. Toprol-XL 25 mg daily. 6. Synthroid 175 mcg daily. 7. Avapro 150 mg p.o. daily. ALLERGIES TO MEDICATIONS: Include CODEINE. FAMILY HISTORY: The patient's mother at age of 92 and father at 82 of colon cancer. SOCIAL HISTORY: There are no reports of alcohol or tobacco abuse. The patient lives with her daughter and son. Surrogate decision maker is her daughter, Xiomara. REVIEW OF SYSTEMS: There was no documented fever. Denied having any significant weight change. There was no double vision. She denied having any ear discharge. There was no rhinorrhea. No sore throat. No thyroid enlargement. They denied having any chest pain. There was no orthopnea, no nocturnal dyspnea. There was no abdominal pain. There is no nausea. There was no vomiting. There was no dysuria, no frequency. No seizure was reported. No loss of consciousness reported. Review of 14 systems completed, all others negative. PHYSICAL EXAMINATION GENERAL: At this time, Mrs. Thorpe is an 88-year-old female patient. She is sitting in the ED stretcher. She does not appear to be in any acute distress. She appears to be well nourished and well developed. VITAL SIGNS: Blood pressure 183/65, pulse 91, respirations 16, O2 sat 98%, temperature 97.8. HEENT: Eyes: EOMs are intact. Sclerae anicteric and not pale. Pupils are reactive to light. Throat: Oral mucosa appears to be moist. No oropharyngeal erythema. NECK: Supple. LUNGS: Clear to auscultation. No wheezes, rales, or rhonchi. HEART: Heart sounds S1, S2. Regular rate and rhythm. No murmurs, rubs, or gallops. ABDOMEN: Soft, flat, nontender. Bowel sounds are present. EXTREMITIES: Pulses were 2+ throughout. The right lower extremity does have some mild erythema. She has contracture to the right upper extremity and difficulty with movement in the right upper extremity, which is chronic. She also has decreased range of motion to the right lower extremity as well given pain and limited range of motion to her right knee. The left side, she has significant weakness in the left upper extremity. She had approximately 1/5 strength in the left upper extremity. In the left lower extremity, she had 1/5 strength as well. She appeared also to have a foot drop in the left foot as well. NEUROLOGIC: She is awake. She is alert. She knows her name and she knows she is in the hospital. Her speech was clear. She had some mild dysarthria. Her tongue was benign. She appeared to have a partial gaze palsy. It is difficult to know given her difficulty with exam. On the neuro exam, she may have a left- sided hemianopsia. She certainly has significant left-sided weakness. Her grips was unequal on that left side. She was unable to do [id number] on the left side and on the right side due to pain and restriction. She is unable to do [id number]. It is difficult to know she has ataxia or not. She appeared to have a slight left-sided neglect as well. She was hyperreflexic in the left biceps as well at the biceps area and brachioradialis compared to the right. No other gross focal deficits are noted. Her skin is intact. DIAGNOSTIC STUDIES/LAB DATA: Her labs are pending for today. Her WBC was 12.5 , RBC of 3.51, hemoglobin of 10, hematocrit of 32, platelet count of 187. She had a bedside glucose of 130. Chemistries are pending. She had imaging so far, brain CT done, which showed no acute intracranial pathology, chronic small-vessel ischemic change. She did have an EKG obtained today as well, which is showing normal sinus rhythm, rate of 90. She had a left anterior fascicular block. I do not see any ST elevations or T-wave inversions noted. Reviewed the previous EKG, it is similar. She does appear to have LVH. She had a CTA of the head and neck today as well, impression: Arthrosclerosis, no internal carotid artery stenosis by NASCET criteria, no aneurysm, vascular malformation, occlusion or stenosis visualized in intracranial circulation. She did have a chest x-ray obtained today, which shows a cardiomegaly. There do not appear to be any infiltrates or acute effusions. She does have an inspiratory film. Old medical records were reviewed. She did have x- rays of the right lower extremity just done a few weeks ago, showed slightly limited exam, no evidence of fracture on right lower leg and a foot x-ray showed no fracture. Again, the family did relate to me that they had a sonogram of the lower extremity yesterday, which was normal. We are getting those records. She will be admitted under inpatient status for: 1. Presumed cerebrovascular accident. At this point, she does not have an LVO. In addition to this, her time of onset, she is outside the window for tPA. Her INH stroke scale on initial evaluation was 10. She is currently on Plavix and atorvastatin. We will continue these medications and add on aspirin. Going forward, we need to check a lipid panel and A1c. There is concern this may be a seizure with Davis paralysis, so I am checking EEG per recommendations of Dr. Quach. I will also get an MRI of the brain and an echo with bubble study, place her on telemetry, and I have ordered PT, OT, and speech evaluation. I will continue with frequent neuro checks and if she passes swallowing evaluation, we certainly will get her on a diet acutely. I will allow her blood pressure to run on the high side to allow for perfusion. I will treat blood pressure for systolics greater than 200 or diastolics greater than 100. She will be on seizure precautions going forward and I will check a Keppra level as well. Given her exam, again, it could be seizure versus stroke. 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 We will continue to follow. 2. Hypothyroidism. Continue her Synthroid. I am checking her TSH. 3. Hyperlipidemia. Continue statin therapy. Checking lipid panel. 4. Hypertension. We will allow for permissive hypertension in the first 24 hours. We will start to slowly add on medications tomorrow. 5. DVT prophylaxis. I will hold off on giving her heparin subcu for the first 24 hours as there is certainly increased risk for hemorrhagic conversion if this is a stroke. We can start this going forward tomorrow. I will place her on SCDs. 6. Code status. Full code. 7. Fluids, electrolytes, and nutrition. She is n.p.o. pending swallow eval. My goal would be a heart healthy diet. 8. Cellulitis. She appears to have a mild cellulitis of the right lower extremity. I am going to get the records from yesterday as she did have a sonogram. I will treat her with Ancef and we will continue to follow. TIME SPENT: On the admission was 60 minutes, greater than half the time spent face- to-face with the patient obtaining my history and physical; other half time spent going over the plan of care with the patient and implementing plan of care. I did discuss the plan of care with my attending, Dr. Trent; he is in agreement. CONTRERAS RAMOS, JEANNIE [id number]/[facility] #: [id number] SANAZ
[2019-02-15] MEDS ORDERED: levETIRAcetam TAB* 500 MG PO SCH (21:00)
[2019-02-15] MEDS: Acetaminophen TAB* 325 MG PO PRN (23:02)
[2019-02-16] MEDS: ceFAZolin 1 GM ADVAN(*) 1 GM in NS 0.9% 50 ML* 50 ML IVPB SCH ×3 (02:00→18:18)
[2019-02-16] MEDS: Levothyroxine TAB* 175 MCG TAB PO SCH (05:49)
[2019-02-16 06:54] LABS: ABS Basophils 0.1 10^3/ul (0-0.2); ABS Eosinophils 0.2 10^3/ul (0-0.6); ABS Lymphocytes 1.9 10^3/ul (1.0-4.8); ABS Monocytes 0.9 10^3/ul (0-0.8); ABS Neutrophils 6.1 10^3/ul (1.5-7.7); ABS Nucleated RBC 0 10^3/ul; Eosinophil % 2.1 %; Hematocrit 30 % (33-41); Lymphocyte % 20.9 %; Mean Corpuscular HGB Conc 34 g/dL (31-36); Mean Corpuscular Hemoglobin 31 pg (27-31); Mean Corpuscular Volume 91 fL (80-97); Mean Platelet Volume 10.7 fL (7.4-10.4); Nucleated Red Blood Cells % 0.1; Platelet Count 164 10^3/uL (150-450); Red Blood Count 3.25 10^6 /uL (3.70-4.87); Red Cell Distribution Width 14 % (10.5-15); White Blood Count 9.1 10^3/uL (3.5-10.8)
[2019-02-16 07:10] LABS: BUN/Creatinine Ratio 41.5 (8-20); Calcium 8.9 mg/dL (8.6-10.3); EGFR African American 131.7 (>60); EGFR Non-African American 108.9 (>60); Potassium 3.8 mmol/L (3.5-5.0)
--- NOTE | 2019-02-16 07:44 | PN ---
Subjective Date of Service: 02/16/19 Length of Stay: 1 Days Interval History: Overnight, no new issues. She has gained strength back in the RUE. She notes pain in her feet and legs which is chronic and longstanding. She is clear, alert and oriented. She denies any headaches, new vision symptoms and does feel that her left arm strength is better. She has chronic disuse of the RUE. Per the family yesterday, she is normal able to eat ok but was having some more trouble yesterday. She was also noted to be more confused yesterday, will have episodes of intermittent confusion at home. No reported seizure activity overnight. Tele showed no significant arrhythmias. Studies: CTA: I reviewed the films and saw no evidence of LVO Impression: 1. Athersclerosis 2. No ICA stenosis 3. 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 Chronic white matter disease Echo: Pending EEG: Pending Objective Active Medications: Acetaminophen (Tylenol Tab*) 650 mg PO Q4H PRN PRN Reason: FEVER/PAIN Last Admin: 02/15/19 23:02 Dose: 650 mg Aspirin (Aspirin 81 Mg Chew Tab*) 81 mg PO DAILY [facility] Atorvastatin Calcium (Lipitor*) 40 mg PO 1700 [facility] Last Admin: 02/15/19 17:16 Dose: 40 mg Clopidogrel Bisulfate (Plavix Tab*) 75 mg PO 0900 [facility] Cefazolin Sodium 1 gm/ Sodium (Chloride) 50 mls @ 200 mls/hr IVPB Q8H [facility] Last Admin: 02/16/19 02:00 Dose: 200 mls/hr Levetiracetam (Keppra Tab*) 750 mg PO BID [facility] Levothyroxine Sodium (Synthroid Tab*) 175 mcg PO DAILY@0600 [facility] Last Admin: 02/16/19 05:49 Dose: 175 mcg Ondansetron HCl (Zofran Inj*) 4 mg IV Q6H PRN PRN Reason: NAUSEA Vital Signs 02/15/19 02/15/19 02/15/19 14:51 14:52 15:00 Temperature 97.8 F Pulse Rate 91 Respiratory 18 16 26 Rate Blood Pressure 183/65 (mmHg) O2 Sat by Pulse 98 Oximetry 02/15/19 02/15/19 02/15/19 15:08 15:41 16:43 Temperature Pulse Rate 91 Respiratory 25 20 Rate Blood Pressure 168/76 (mmHg) O2 Sat by Pulse 98 94 Oximetry 02/15/19 02/15/19 02/15/19 17:41 18:10 18:11 Temperature 97.1 F Pulse Rate 91 Respiratory 25 Rate Blood Pressure 145/87 169/89 145/87 (mmHg) O2 Sat by Pulse 94 Oximetry 02/15/19 02/15/19 02/15/19 18:32 20:00 23:52 Temperature 98.2 F 97.9 F Pulse Rate 99 81 Respiratory 20 20 20 Rate Blood Pressure 175/72 161/57 (mmHg) O2 Sat by Pulse 96 92 Oximetry 02/16/19 03:35 Temperature 97.4 F Pulse Rate 73 Respiratory 19 Rate Blood Pressure 154/55 (mmHg) O2 Sat by Pulse 94 Oximetry Intake and Output Last 24 Hours 02/14/19 02/15/19 02/16/19 02/17/19 06:59 06:59 06:59 06:59 Intake Total 100 Balance 100 Weight 139 lb Intake: Oral 100 Other: Estimated Void Large # Voids 2 Oxygen Devices in Use Now: None Neurology Exam: General: Chronically ill appearing female in no acute distress HEENT: Normocephalic/atraumatic, sclera anicteric, mucous membranes dry Neck: Supple Chest: Clear to auscultation bilaterally Cardiovascular: Regular rate and rhythm Abdomen: Soft, non-tender/non-distended Extremities: Redness of the RLE over the suarez, slightly warm Neurological Findings: Awake, alert, and oriented to person, place Speech: fluent with mild dysarthria, follows commands and answers questions Cranial Nerve: PERRL, EOM intact, ? left visual field loss, inconsistent exam but seems improved, no nystagmus, mild Left lower droop, facial sensation intact , hearing diminished bilaterally, palate elevates symmetrically, tongue midline Motor: Difficult exam: chronic, limited ROM of the RUE with normal tone distally, 4+/5 distally. 4+/5 weakness LUE proximally and distally (improved), 4/5 weakness of the proximal LEs bilaterally with increased tone throughout and flexion posturing of the feet, chronic in nature Sensation: Difficult exam. She is not neglecting the left side today. LT and pain appear to be intact Deep Tendon Reflex: 2+ left biceps, trace in the RUE and absent patella, ankles , equivocal Babinski Difficult with JAN, finger to nose. No resting tremors or postural tremors noted Gait: Unable to ambulate without 2 assist and walker at baseline. At best, able to walk several steps at home, on her toes. Normally, she is not ambulatory. Result Diagrams: 02/16/19 05:54 02/16/19 06:00 Diagnostic Imaging: CTA: I reviewed the films and saw no evidence of LVO Impression: 1. Athersclerosis 2. No ICA stenosis 3. 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 Chronic white matter disease Assessment/Plan Ms. Thorpe is an 88-year-old female with a complicated medical history including hypertension, hypothyroidism, previous transient ischemic attacks versus strokes versus seizures. She was on Plavix at home, also on Keppra with occasional episodes of aphasia and some confusion. She has chronic weakness of her right upper extremity after a shoulder injection in the past. She has a difficult time walking due to arthritis, but normally is able to use her left hand and arm without difficulty. Last normal was 10 pm night before presentation. Woke up with left sided findings. Eliseo trevino was called for possible LVO but no LVO on CTA. She was outside the tPA window. Her son reported "mumbling" like noises "like when she is having a seizure" during the night. She also was having some intermittent confusion day of admission. No tongue biting. No bladder incontinence that the family is aware of, although she is incontinent generally. Initial NIH 10 at time of ER presentation Acute Weakness: No evidence of stroke on MRI. No LVO on CTA. This am, she is improved with more movement of the left arm. 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 She typically does not walk at baseline --Echocardiogram today to complete stroke workup --EEG today: I am going to increase her Keppra dose to 750mg po bid as my suspicion is high for new stroke and son reports other episodes intermittently --Can follow up Keppra level as outpatient: The Keppra level was done at 500mg po bid. --No further seizure activity reported, continue seizure precautions --Currently NPO pending speech eval. She has some baseline dysarthria and has a history of old right frontal stroke --Would continue Plavix. No need for DAPT. Given the length of time of symptoms and the severity of symptoms, we can stop the ASA as my suspicion for TIA/Stroke is low --Can work toward better blood pressure control at this point. No evidence of stroke --Chcf stroke risk factor management: HTN control, lipid control, continue ASA, statin. Non-diabetic --She has chronic, longstanding right arm weakness, and gait problems related to arthritis. PT/OT pending. Unclear if she is a candidate for inpatient PT --Thyroid replacement per primary team, TSH normal --Celllulitis of the right lower extremity. Recent U/S reported negative for DVT --Hyponatremia, likely hypovolemic. Defer to primary team. I will continue to follow. At this point, my working assumption is that she had a seizure with some prolonged post-ictal state and some Davis's paralysis of the LUE. I have increased her Keppra to 750mg bid. She will need outpatient follow up with Dr. Martines in 4 weeks upon discharge. Assuming her EEG shows no ongoing seizure activity and her Echo looks ok, I am ok with discharge from a neurologic standpoint but unclear if she needs more rehab before returning home.
[2019-02-16] MEDS: Clopidogrel TAB* 75 MG PO SCH (08:59)
[2019-02-16] MEDS: levETIRAcetam TAB* 500 MG PO SCH ×2 (08:59→20:13)
[2019-02-16] MEDS ORDERED: Aspirin 81 mg CHEW TAB* 81 MG TAB.CHEW PO SCH (09:00)
--- NOTE | 2019-02-16 11:13 | EEG ---
ELECTROENCEPHALOGRAPHY: DATE OF STUDY: 02/16/19 REFERRING PROVIDER: Contreras Ramos NP LOCATION: She is an inpatient in room 437. CLINICAL PROBLEM: An 88-year-old woman who was heard thrashing in her bed and mumbling and confused 2 nights ago. When she woke up in the morning, she had left- sided weakness. MEDICATIONS: Include: 1. Keppra. 2. Synthroid. 3. Lipitor. 4. Plavix. 5. Kefzol. REPORT: This 19-channel EEG is remarkable for background rhythms consisting of a left occipital rhythm of about 8 cycles per second with generalized slowing seen from the right hemisphere. Bifrontal muscle artifact is seen early in the tracing. The patient is described as uncomfortable and moaning and frowning. Activation procedures are not attempted. Throughout the awake portions of the recording, there was generalized slowing from the right hemisphere. Alpha rhythms persist intermittently from the left occipital derivations. Later in the tracing, the patient is repositioned and calms down and muscle artifact abates. The patient falls asleep with generalized slowing noted. There are some vertex sharp waves noted. Subsequently, sleep spindles much better formed from the left hemisphere than the right. There are a few episodes of right parasagittal sleep spindles, however. There are no clinical events. CLINICAL IMPRESSION: Abnormal EEG due to generalized slowing from the right hemisphere. This is consistent with right hemisphere neuronal dysfunction. There are no epileptiform discharges during this recording. There are no clinical events. [id number]/[facility] #: [id number] [facility]
--- NOTE | 2019-02-16 11:57 | ECHO ---
Patient: MICHELE BASSETT [facility] Rec#: [id number] : 1930 Date: 02/16/2019 Age: 88y Height: 163 cm / 64.2 in Weight: 63.5 kg / 140.0 lbs Sex: F BSA: 1.7 Room#: 437 Admit Date#: 02/15/2019 Type: Inpatient Referring: Contreras Ramos NP Reading: Pablo Vyas DO Pill Packer: Steffi Griffith RN RDCS CC: Isauro Almaraz MD Transthoracic Echocardiogram Indication: CVA BP: 154/55 HR: 66 Rhythm: NSR Findings History: CAD, HTN, HLD, TIA, thyroid cancer Technical Comments: The study quality is fair. Left Ventricle: The left ventricular chamber size is normal. Mild basal septal hypertrophy Global left ventricular wall motion and contractility are within normal limits. There is normal left ventricular systolic function. The estimated ejection fraction is greater than 65%. There is no consistent Doppler evidence of clinically significant diastolic dysfunction. Left Atrium: The left atrium is mildly dilated. Right Ventricle: The right ventricular chamber size and systolic function are within normal limits. Right Atrium: The right atrial cavity size is normal. The bubble study is negative. There is evidence of an atrial septal aneurysm. Aortic Valve: The aortic valve is trileaflet. The aortic valve leaflets are mildly thickened. There is mild aortic regurgitation. There is no evidence of aortic stenosis. Mitral Valve: Mild mitral annular calcification present. The mitral valve leaflets are mildly thickened. There is mild to moderate mitral regurgitation. , mechanism is uncertain There is no evidence of mitral stenosis. Tricuspid Valve: The tricuspid valve leaflets are normal. There is trace to mild tricuspid regurgitation. No pulmonary hypertension is noted. There is no tricuspid stenosis. Pulmonic Valve: The pulmonic valve appears normal. There is trace to mild pulmonic regurgitation. There is no pulmonic stenosis. Pericardium: There is a small pericardial effusion. There are no signs of significant hemodynamic compromise. Aorta: There is no dilatation of the ascending aorta. There is no dilatation of the aortic arch. There is no dilation of the aortic root. Pulmonary Artery: The main pulmonary artery is not well visualized. Venous: The inferior vena cava appears normal in size. There is a greater than 50% respiratory change in the inferior vena cava dimension. Contrast: Normal saline was used as contrast for the bubble study. Images 102 and 103. Conclusions The left ventricular chamber size is normal Mild basal septal hypertrophy Global left ventricular wall motion and contractility are within normal limits. There is normal left ventricular systolic function LVEF 65-70% The left atrium is mildly dilated. The right ventricular chamber size and systolic function are within normal limits. There is mild aortic regurgitation. There is mild to moderate mitral regurgitation, mechanism is uncertain There is a small pericardial effusion. There are no signs of significant hemodynamic compromise. The bubble study is negative. Compared to prior study from 05/2018, a very small pericardial effusion is now noted Measurements Name Value Normal Range RVDdMajor (2D) 3 cm (2.2 - 4.4) RAd ISD 4CH 4.4 cm (3.4 - 4.9) RA (A4C)W 3.2 cm (2.9 - 4.6) IVSd (2D) 1 cm (0.6 - 1) LVPWd (2D) 0.9 cm (0.6 - 1) LVIDd (2D) 4.4 cm (3.6 - 5.4) LVIDs (2D) 3.1 cm - LV FS (2D) 30 % (25 - 45) Aortic Annulus 2 cm (1.4 - 2.6) Ao root diameter (2D) 3.1 cm (2.1 - 3.5) Ascending Ao 3.3 cm (2.1 - 3.4) Aortic arch 2.3 cm (1.8 - 3.4) LA dimension (AP) 2D 3.9 cm (2.3 - 3.8) LAd ISD 4CH 4.7 cm (2.9 - 5.3) LA ISD 4CH W 4 cm (2.5 - 4.5) Name Value Normal Range LA ESV BP (A/L) index 30.5 ml/m2 - Name Value Normal Range MV E-wave Vmax 0.69 m/sec - MV deceleration time 257 msec - MV A-wave Vmax 0.86 m/sec - MV E:A ratio 0.8 ratio - LV septal e' Vmax 0.05 m/sec - LV lateral e' Vmax 0.07 m/sec - LV E:e' septal ratio 13.8 ratio - LV E:e' lateral ratio 9.9 ratio - Name Value Normal Range AV Vmax 1.4 m/sec - AV VTI 34.1 cm - AV peak gradient 7 mmHg - AV mean gradient 5 mmHg - LVOT Vmax 1 m/sec - LVOT VTI 24.3 cm - LVOT peak gradient 4 mmHg - LVOT mean gradient 3 mmHg - AR PHT 547 msec - Name Value Normal Range TR Vmax 2.8 m/sec - TR peak gradient 31 mmHg - RAP 3 mmHg - RVSP 34 mmHg - IVC diameter 1.5 cm - Name Value Normal Range PV Vmax 0.6 m/sec -
--- NOTE | 2019-02-16 14:55 | PN ---
Subjective Date of Service: 02/16/19 Interval History: Pt states that she doesn't remember what happened prior to admission, but states that she was told she could not feed herself or walk properly, that she was falling backwards into her chair instead of walking forward. She was also unable to feed herself, but feels that she is back to normal now in terms or strength. Will do bedside swallow eval and order diet. Objective Active Medications: Acetaminophen (Tylenol Tab*) 650 mg PO Q4H PRN Atorvastatin Calcium (Lipitor*) 40 mg PO 1700 ERIN Clopidogrel Bisulfate (Plavix Tab*) 75 mg PO 0900 ERIN Cefazolin Sodium 1 gm/ Sodium (Chloride) 50 mls @ 200 mls/hr IVPB Q8H ERIN Levetiracetam (Keppra Tab*) 750 mg PO BID ERIN Levothyroxine Sodium (Synthroid Tab*) 175 mcg PO DAILY@0600 ERIN Ondansetron HCl (Zofran Inj*) 4 mg IV Q6H PRN Vital Signs: Temp Pulse Resp BP Pulse Ox 97.4 F 73 20 154/55 94 02/16/19 03:35 02/16/19 03:35 02/16/19 08:00 02/16/19 03:35 02/16/19 03:35 Oxygen Devices in Use Now: None Appearance: Pt is sitting in bed. She appears frail. She is in no acute distress. Eyes: No Scleral Icterus, PERRLA Ears/Nose/Mouth/Throat: NL Teeth, Lips, Gums, Clear Oropharnyx, Mucous Membranes Moist Neck: NL Appearance and Movements; NL JVP, Trachea Midline Respiratory: Symmetrical Chest Expansion and Respiratory Effort, Clear to Auscultation Cardiovascular: NL Sounds; No Murmurs; No JVD, RRR, No Edema Abdominal: NL Sounds; No Tenderness; No Distention, No Hepatosplenomegaly Lymphatic: No Cervical Adenopathy Extremities: No Edema, - - Strength 4/5 in b/l UE, LE. Skin: - - RLE anterior suarez with TTP, mass, erythema. LLE nontender. Neurological: - - Alert, oriented to self and place. Result Diagrams: 02/16/19 05:54 02/16/19 06:00 Diagnostic Imaging: CTA: I reviewed the films and saw no evidence of LVO Impression: 1. Athersclerosis 2. No ICA stenosis 3. 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 Chronic white matter disease Assess/Plan/Problems-Billing Ms. Thorpe is an 88-year-old female with a complicated medical history including hypertension, hypothyroidism, previous transient ischemic attacks versus strokes versus seizures. She was on Plavix at home, also on Keppra with occasional episodes of aphasia and some confusion. She has chronic weakness of her right upper extremity after a shoulder injection in the past. She has a difficult time walking due to arthritis, but normally is able to use her left hand and arm without difficulty. Last normal was 10 pm night before presentation. Woke up with left sided findings. Eliseo trevino was called for possible LVO but no LVO on CTA. She was outside the tPA window. Her son reported "mumbling" like noises "like when she is having a seizure" during the night. She also was having some intermittent confusion day of admission. No tongue biting. No bladder incontinence that the family is aware of, although she is incontinent generally. Initial NIH 10 at time of ER presentation Acute Weakness: No evidence of stroke on MRI. No LVO on CTA. This am, she is improved with more movement of the left arm. 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 She typically does not walk at baseline --Echocardiogram today to complete stroke workup --EEG today: I am going to increase her Keppra dose to 750mg po bid as my suspicion is high for new stroke and son reports other episodes intermittently --Can follow up Keppra level as outpatient: The Keppra level was done at 500mg po bid. --No further seizure activity reported, continue seizure precautions --Currently NPO pending speech eval. She has some baseline dysarthria and has a history of old right frontal stroke --Would continue Plavix. No need for DAPT. Given the length of time of symptoms and the severity of symptoms, we can stop the ASA as my suspicion for TIA/Stroke is low --Can work toward better blood pressure control at this point. No evidence of stroke --Alf stroke risk factor management: HTN control, lipid control, continue ASA, statin. Non-diabetic --She has chronic, longstanding right arm weakness, and gait problems related to arthritis. PT/OT pending. Unclear if she is a candidate for inpatient PT --Thyroid replacement per primary team, TSH normal --Celllulitis of the right lower extremity. Recent U/S reported negative for DVT --Hyponatremia, likely hypovolemic. Defer to primary team. I will continue to follow. At this point, my working assumption is that she had a seizure with some prolonged post-ictal state and some Davis's paralysis of the LUE. I have increased her Keppra to 750mg bid. She will need outpatient follow up with Dr. Martines in 4 weeks upon discharge. Assuming her EEG shows no ongoing seizure activity and her Echo looks ok, I am ok with discharge from a neurologic standpoint but unclear if she needs more rehab before returning home. - Patient Problems (1) Weakness Comment: -Improved strength on L side -MRI reveals no evidence for stroke; CTA shows no LVO; ? seizure -Dr. Quach consulted; thank you for the recommendations -Nursing swallow eval, followed by heart helathy diet, if eval WNL (2) Cellulitis Comment: -Negative for DVT; x-ray from 01/24 reveals no evidence for fx -Continue Ceftriaxone (3) HTN (hypertension) Comment: -SBP 150's -Restarting home medications; metoprolol with hold parameters -Continue to monitor (4) Hyperlipidemia Comment: -LDL WNL -Continue atorvastatin (5) Hypothyroidism Comment: -TSH WNL -Continue levothyroxine (6) DVT prophylaxis Comment: -MRI reveals no stroke -Heparin ordered (7) DNR (do not resuscitate) Status and Disposition: Inpatient. Discharge when stable.
[2019-02-16] MEDS: Losartan TAB* 25 MG PO SCH (18:18)
[2019-02-16] MEDS: Atorvastatin* 40 MG TAB PO SCH (18:18)
[2019-02-16] MEDS: Heparin VIAL(*) 5000 UNITS/ML VIAL (FIVE THOUSAND) SUBCUT SCH (20:13)
[2019-02-16 20:38] LABS: Activated Partial Thrombo Time 29.7 seconds (26.0-36.3); INR 0.98 (0.77-1.02)
[2019-02-17] MEDS: ceFAZolin 1 GM ADVAN(*) 1 GM in NS 0.9% 50 ML* 50 ML IVPB SCH ×3 (01:18→17:45)
[2019-02-17] MEDS: Levothyroxine TAB* 175 MCG TAB PO SCH (05:11)
[2019-02-17 06:54] LABS: Hematocrit 29 % (33-41); Hemoglobin 9.5 g/dL (12.0-16.0); Mean Corpuscular HGB Conc 33 g/dL (31-36); Mean Corpuscular Hemoglobin 30 pg (27-31); Mean Corpuscular Volume 92 fL (80-97); Mean Platelet Volume 10.5 fL (7.4-10.4); Platelet Count 152 10^3/uL (150-450); Red Blood Count 3.14 10^6 /uL (3.70-4.87); Red Cell Distribution Width 14 % (10.5-15); White Blood Count 12.6 10^3/uL (3.5-10.8)
[2019-02-17 07:14] LABS: Calcium 8.5 mg/dL (8.6-10.3); EGFR Non-African American 77.7 (>60); Potassium 3.8 mmol/L (3.5-5.0)
[2019-02-17] MEDS: Clopidogrel TAB* 75 MG PO SCH (08:51)
[2019-02-17] MEDS: Metoprolol Succinate XL TAB* 25 MG PO SCH (08:51)
[2019-02-17] MEDS: amLODIPine TAB* 5 MG PO SCH (08:51)
[2019-02-17] MEDS: Heparin VIAL(*) 5000 UNITS/ML VIAL (FIVE THOUSAND) SUBCUT SCH ×2 (08:52→20:01)
[2019-02-17] MEDS: levETIRAcetam TAB* 500 MG PO SCH ×2 (08:52→20:01)
[2019-02-17] MEDS: Atorvastatin* 40 MG TAB PO SCH (17:45)
[2019-02-17] MEDS: Losartan TAB* 25 MG PO SCH (17:45)
--- NOTE | 2019-02-17 18:11 | PN ---
Subjective Date of Service: 02/17/19 Interval History: Pt noted to have overnight fever and leukocytosis this morning. She denies cough, change in urination, and diarrhea. Pt states that she still feels weak and has difficulty eating. Son, who lives with pt, states that he believes she is back to baseline. He states that pt does not ambulate, but transfers with assistance. PT recommended SNF; discussed with pt and son, who refused, stating that pt has home PT/OT, as well as aid who helps pt to shower. Objective Active Medications: Acetaminophen (Tylenol Tab*) 650 mg PO Q4H PRN Amlodipine Besylate (Norvasc Tab*) 5 mg PO DAILY ERIN Atorvastatin Calcium (Lipitor*) 40 mg PO 1700 ERIN Clopidogrel Bisulfate (Plavix Tab*) 75 mg PO 0900 ERIN Heparin Sodium (Porcine) (Heparin Vial(*)) 5,000 units SUBCUT Q12HR ERIN Cefazolin Sodium 1 gm/ Sodium (Chloride) 50 mls @ 200 mls/hr IVPB Q8H ERIN Levetiracetam (Keppra Tab*) 750 mg PO BID ERIN Levothyroxine Sodium (Synthroid Tab*) 175 mcg PO DAILY@0600 ERIN Losartan Potassium (Cozaar Tab*) 50 mg PO QPM ERIN Metoprolol Succinate (Toprol Xl Tab*) 25 mg PO DAILY ERIN Ondansetron HCl (Zofran Inj*) 4 mg IV Q6H PRN Vital Signs: Temp Pulse Resp BP Pulse Ox 99.0 F 91 18 130/48 92 02/17/19 10:36 02/17/19 10:36 02/17/19 10:36 02/17/19 10:36 02/17/19 10:36 Oxygen Devices in Use Now: None Appearance: Pt is resting in chair with b/l LE elevated. She nods off to sleep regularly, but wakes easily and responds appropriately. She appears tired, but in no acute distress. Eyes: No Scleral Icterus, PERRLA Ears/Nose/Mouth/Throat: NL Teeth, Lips, Gums, Mucous Membranes Moist Neck: NL Appearance and Movements; NL JVP, Trachea Midline Respiratory: Symmetrical Chest Expansion and Respiratory Effort, Clear to Auscultation Cardiovascular: NL Sounds; No Murmurs; No JVD, RRR Abdominal: NL Sounds; No Tenderness; No Distention, No Hepatosplenomegaly Extremities: No Clubbing, Cyanosis, - - RLE ? LLE edema. RLE with erythema and mass on R anterior lower leg. Neurological: Alert and Oriented x 3 Result Diagrams: 02/17/19 06:34 02/17/19 06:34 Microbiology and Other Data: Microbiology 02/15/19 17:55 Aerobic Blood Culture - Preliminary Blood Venous No Growth Day 2 Anaerobic Blood Culture - Preliminary No Growth Day 2 02/15/19 17:55 Aerobic Blood Culture - Preliminary Blood Venous No Growth Day 2 Anaerobic Blood Culture - Preliminary No Growth Day 2 Diagnostic Imaging: CTA: I reviewed the films and saw no evidence of LVO Impression: 1. Athersclerosis 2. No ICA stenosis 3. 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 Chronic white matter disease Assess/Plan/Problems-Billing Ms. Thorpe is an 88-year-old female with a complicated medical history including hypertension, hypothyroidism, previous transient ischemic attacks versus strokes versus seizures. She was on Plavix at home, also on Keppra with occasional episodes of aphasia and some confusion. She has chronic weakness of her right upper extremity after a shoulder injection in the past. She has a difficult time walking due to arthritis, but normally is able to use her left hand and arm without difficulty. Last normal was 10 pm night before presentation. Woke up with left sided findings. Eliseo trevino was called for possible LVO but no LVO on CTA. She was outside the tPA window. Her son reported "mumbling" like noises "like when she is having a seizure" during the night. She also was having some intermittent confusion day of admission. No tongue biting. No bladder incontinence that the family is aware of, although she is incontinent generally. Initial NIH 10 at time of ER presentation Acute Weakness: No evidence of stroke on MRI. No LVO on CTA. This am, she is improved with more movement of the left arm. 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 She typically does not walk at baseline --Echocardiogram today to complete stroke workup --EEG today: I am going to increase her Keppra dose to 750mg po bid as my suspicion is high for new stroke and son reports other episodes intermittently --Can follow up Keppra level as outpatient: The Keppra level was done at 500mg po bid. --No further seizure activity reported, continue seizure precautions --Currently NPO pending speech eval. She has some baseline dysarthria and has a history of old right frontal stroke --Would continue Plavix. No need for DAPT. Given the length of time of symptoms and the severity of symptoms, we can stop the ASA as my suspicion for TIA/Stroke is low --Can work toward better blood pressure control at this point. No evidence of stroke --Usp stroke risk factor management: HTN control, lipid control, continue ASA, statin. Non-diabetic --She has chronic, longstanding right arm weakness, and gait problems related to arthritis. PT/OT pending. Unclear if she is a candidate for inpatient PT --Thyroid replacement per primary team, TSH normal --Celllulitis of the right lower extremity. Recent U/S reported negative for DVT --Hyponatremia, likely hypovolemic. Defer to primary team. I will continue to follow. At this point, my working assumption is that she had a seizure with some prolonged post-ictal state and some Davis's paralysis of the LUE. I have increased her Keppra to 750mg bid. She will need outpatient follow up with Dr. Martines in 4 weeks upon discharge. Assuming her EEG shows no ongoing seizure activity and her Echo looks ok, I am ok with discharge from a neurologic standpoint but unclear if she needs more rehab before returning home. - Patient Problems (1) Weakness Comment: -Improved strength on L side -MRI reveals no evidence for stroke; CTA shows no LVO; ? seizure -Dr. Quach consulted; thank you for the recommendations -Nursing swallow eval, followed by heart helathy diet, if eval WNL (2) Cellulitis Comment: -Negative for DVT; x-ray from 01/24 reveals no evidence for fx -Continue Ceftriaxone (3) HTN (hypertension) Comment: -SBP trending down -Continue home medications; metoprolol with hold parameters -Continue to monitor (4) Hyperlipidemia Comment: -LDL WNL -Continue atorvastatin (5) Hypothyroidism Comment: -TSH WNL -Continue levothyroxine (6) DVT prophylaxis Comment: -MRI reveals no stroke -Heparin SQ (7) DNR (do not resuscitate) Status and Disposition: Inpatient. Discharge when stable.
[2019-02-17] MEDS: Acetaminophen TAB* 325 MG PO PRN (20:18)
[2019-02-18] MEDS: ceFAZolin 1 GM ADVAN(*) 1 GM in NS 0.9% 50 ML* 50 ML IVPB SCH ×3 (00:32→17:26)
[2019-02-18] MEDS: Acetaminophen TAB* 325 MG PO PRN ×3 (00:45→22:12)
[2019-02-18 04:53] LABS: ABS Basophils 0.1 10^3/ul (0-0.2); ABS Eosinophils 0.2 10^3/ul (0-0.6); ABS Lymphocytes 2.1 10^3/ul (1.0-4.8); ABS Monocytes 1.3 10^3/ul (0-0.8); ABS Nucleated RBC 0 10^3/ul; Eosinophil % 1.4 %; Hematocrit 27 % (33-41); Hemoglobin 9.1 g/dL (12.0-16.0); Mean Corpuscular HGB Conc 34 g/dL (31-36); Mean Corpuscular Hemoglobin 31 pg (27-31); Mean Corpuscular Volume 92 fL (80-97); Mean Platelet Volume 10.2 fL (7.4-10.4); Nucleated Red Blood Cells % 0; Platelet Count 144 10^3/uL (150-450); Red Blood Count 2.97 10^6 /uL (3.70-4.87); Red Cell Distribution Width 15 % (10.5-15); White Blood Count 10.6 10^3/uL (3.5-10.8)
[2019-02-18 05:10] LABS: BUN/Creatinine Ratio 42.4 (8-20); Calcium 8.3 mg/dL (8.6-10.3); EGFR African American 116.4 (>60); EGFR Non-African American 96.2 (>60); Potassium 3.8 mmol/L (3.5-5.0)
[2019-02-18] MEDS: Levothyroxine TAB* 175 MCG TAB PO SCH (06:14)
[2019-02-18] MEDS: Heparin VIAL(*) 5000 UNITS/ML VIAL (FIVE THOUSAND) SUBCUT SCH ×2 (09:24→19:34)
[2019-02-18] MEDS: Metoprolol Succinate XL TAB* 25 MG PO SCH (09:25)
[2019-02-18] MEDS: levETIRAcetam TAB* 500 MG PO SCH ×2 (09:25→19:34)
[2019-02-18] MEDS: Clopidogrel TAB* 75 MG PO SCH (09:25)
[2019-02-18] MEDS: amLODIPine TAB* 5 MG PO SCH (09:25)
[2019-02-18 14:06] LABS: Hematocrit 31 % (33-41)
[2019-02-18] MEDS: Atorvastatin* 40 MG TAB PO SCH (17:26)
[2019-02-18] MEDS: Losartan TAB* 25 MG PO SCH (17:26)
--- NOTE | 2019-02-18 17:51 | PN ---
Subjective Date of Service: 02/18/19 Interval History: Per PT, patient recommended SNF. This was discussed with patient and son yesterday, and they declined. Discussed with daughter, son, and patient today, and they state they would welcome SNF placement. They do have home PT/OT, but this will run out soon, daughter states, and is not as frequent as she would like. Pt is non-ambulatory and transfers, but requires total help with transfer. She is able to stand on own for short periods of time with monitoring. Today, pt is feeling well, but still feels weak. She has had no seizure activity since admission. Her RLE is still painful with a mass, which is likely a result of hitting her leg during seizure activity prior to admission. Objective Active Medications: Acetaminophen (Tylenol Tab*) 650 mg PO Q4H PRN Amlodipine Besylate (Norvasc Tab*) 5 mg PO DAILY ERIN Atorvastatin Calcium (Lipitor*) 40 mg PO 1700 ERIN Clopidogrel Bisulfate (Plavix Tab*) 75 mg PO 0900 ERIN Heparin Sodium (Porcine) (Heparin Vial(*)) 5,000 units SUBCUT Q12HR ERIN Cefazolin Sodium 1 gm/ Sodium (Chloride) 50 mls @ 200 mls/hr IVPB Q8H ERIN Levetiracetam (Keppra Tab*) 750 mg PO BID ERIN Levothyroxine Sodium (Synthroid Tab*) 175 mcg PO DAILY@0600 ERIN Losartan Potassium (Cozaar Tab*) 50 mg PO QPM ERIN Metoprolol Succinate (Toprol Xl Tab*) 25 mg PO DAILY ERIN Ondansetron HCl (Zofran Inj*) 4 mg IV Q6H PRN Vital Signs: Temp Pulse Resp BP Pulse Ox 99.8 F 98 18 142/42 93 02/18/19 15:33 02/18/19 15:33 02/18/19 15:33 02/18/19 15:33 02/18/19 15:33 Oxygen Devices in Use Now: None Appearance: Pt is sitting in chair eating lunch with b/l LE elevated. She is in no acute distress. Eyes: No Scleral Icterus, PERRLA Ears/Nose/Mouth/Throat: NL Teeth, Lips, Gums, Clear Oropharnyx, Mucous Membranes Moist Neck: NL Appearance and Movements; NL JVP, Trachea Midline Respiratory: Symmetrical Chest Expansion and Respiratory Effort, Clear to Auscultation Cardiovascular: NL Sounds; No Murmurs; No JVD, RRR Abdominal: NL Sounds; No Tenderness; No Distention, No Hepatosplenomegaly Extremities: No Clubbing, Cyanosis, - - RLE edema with erythema and mass on anterior LE that is TTP; erythema improved from yesterday. Result Diagrams: 02/18/19 13:52 02/18/19 04:38 Microbiology and Other Data: Microbiology 02/15/19 17:55 Aerobic Blood Culture - Preliminary Blood Venous No Growth Day 2 Anaerobic Blood Culture - Preliminary No Growth Day 2 02/15/19 17:55 Aerobic Blood Culture - Preliminary Blood Venous No Growth Day 2 Anaerobic Blood Culture - Preliminary No Growth Day 2 Diagnostic Imaging: CTA: I reviewed the films and saw no evidence of LVO Impression: 1. Athersclerosis 2. No ICA stenosis 3. 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 Chronic white matter disease Assess/Plan/Problems-Billing Ms. Thorpe is an 88-year-old female with a complicated medical history including hypertension, hypothyroidism, previous transient ischemic attacks versus strokes versus seizures. She was on Plavix at home, also on Keppra with occasional episodes of aphasia and some confusion. She has chronic weakness of her right upper extremity after a shoulder injection in the past. She has a difficult time walking due to arthritis, but normally is able to use her left hand and arm without difficulty. Last normal was 10 pm night before presentation. Woke up with left sided findings. Eliseo trevino was called for possible LVO but no LVO on CTA. She was outside the tPA window. Her son reported "mumbling" like noises "like when she is having a seizure" during the night. She also was having some intermittent confusion day of admission. No tongue biting. No bladder incontinence that the family is aware of, although she is incontinent generally. Initial NIH 10 at time of ER presentation Acute Weakness: No evidence of stroke on MRI. No LVO on CTA. This am, she is improved with more movement of the left arm. 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 She typically does not walk at baseline --Echocardiogram today to complete stroke workup --EEG today: I am going to increase her Keppra dose to 750mg po bid as my suspicion is high for new stroke and son reports other episodes intermittently --Can follow up Keppra level as outpatient: The Keppra level was done at 500mg po bid. --No further seizure activity reported, continue seizure precautions --Currently NPO pending speech eval. She has some baseline dysarthria and has a history of old right frontal stroke --Would continue Plavix. No need for DAPT. Given the length of time of symptoms and the severity of symptoms, we can stop the ASA as my suspicion for TIA/Stroke is low --Can work toward better blood pressure control at this point. No evidence of stroke --Half-Way stroke risk factor management: HTN control, lipid control, continue ASA, statin. Non-diabetic --She has chronic, longstanding right arm weakness, and gait problems related to arthritis. PT/OT pending. Unclear if she is a candidate for inpatient PT --Thyroid replacement per primary team, TSH normal --Celllulitis of the right lower extremity. Recent U/S reported negative for DVT --Hyponatremia, likely hypovolemic. Defer to primary team. I will continue to follow. At this point, my working assumption is that she had a seizure with some prolonged post-ictal state and some Davis's paralysis of the LUE. I have increased her Keppra to 750mg bid. She will need outpatient follow up with Dr. Martines in 4 weeks upon discharge. Assuming her EEG shows no ongoing seizure activity and her Echo looks ok, I am ok with discharge from a neurologic standpoint but unclear if she needs more rehab before returning home. - Patient Problems (1) Weakness Comment: -Improved strength on L side -MRI reveals no evidence for stroke; CTA shows no LVO; this was likely d/t seizure -Dr. Quach consulted; thank you for the recommendations -Nursing swallow eval, followed by heart helathy diet, if eval WNL -Family requesting SNF referal (2) Cellulitis Comment: -Negative for DVT; x-ray from 01/24 reveals no evidence for fx -Continue Cefazolin (3) HTN (hypertension) Comment: -SBP WNL -Continue home medications; metoprolol with hold parameters -Continue to monitor (4) Hyperlipidemia Comment: -LDL WNL -Continue atorvastatin (5) Hypothyroidism Comment: -TSH WNL -Continue levothyroxine (6) DVT prophylaxis Comment: -MRI reveals no stroke -Heparin SQ (7) DNR (do not resuscitate) Status and Disposition: Inpatient. Pending SNF approval.
[2019-02-18] MEDS: NS 0.9% 1000 ML** 1,000 ML IV SCH (19:41)
[2019-02-19] MEDS: ceFAZolin 1 GM ADVAN(*) 1 GM in NS 0.9% 50 ML* 50 ML IVPB SCH ×3 (00:05→16:37)
[2019-02-19] MEDS: Acetaminophen TAB* 325 MG PO PRN ×2 (03:50→22:28)
[2019-02-19] MEDS: Levothyroxine TAB* 175 MCG TAB PO SCH (05:25)
[2019-02-19 05:55] LABS: ABS Basophils 0 10^3/ul (0-0.2); ABS Eosinophils 0.2 10^3/ul (0-0.6); ABS Lymphocytes 1.7 10^3/ul (1.0-4.8); ABS Monocytes 1.4 10^3/ul (0-0.8); ABS Neutrophils 8.9 10^3/ul (1.5-7.7); ABS Nucleated RBC 0 10^3/ul; Eosinophil % 1.4 %; Hematocrit 27 % (33-41); Hemoglobin 8.8 g/dL (12.0-16.0); Lymphocyte % 13.7 %; Mean Corpuscular HGB Conc 32 g/dL (31-36); Mean Corpuscular Hemoglobin 30 pg (27-31); Mean Corpuscular Volume 93 fL (80-97); Nucleated Red Blood Cells % 0; Platelet Count 138 10^3/uL (150-450); Red Blood Count 2.93 10^6 /uL (3.70-4.87); Red Cell Distribution Width 14 % (10.5-15); White Blood Count 12.2 10^3/uL (3.5-10.8)
[2019-02-19] MEDS: levETIRAcetam TAB* 500 MG PO SCH ×2 (08:18→20:42)
[2019-02-19] MEDS: Metoprolol Succinate XL TAB* 25 MG PO SCH (08:18)
[2019-02-19] MEDS: Clopidogrel TAB* 75 MG PO SCH (08:18)
[2019-02-19] MEDS: Heparin VIAL(*) 5000 UNITS/ML VIAL (FIVE THOUSAND) SUBCUT SCH ×2 (08:19→20:43)
[2019-02-19] MEDS: amLODIPine TAB* 5 MG PO SCH (08:19)
[2019-02-19] MEDS: NS 0.9% 1000 ML** 1,000 ML IV SCH (14:21)
[2019-02-19] MEDS: Atorvastatin* 40 MG TAB PO SCH (16:36)
[2019-02-19] MEDS: Losartan TAB* 25 MG PO SCH (16:36)
--- NOTE | 2019-02-19 18:52 | PN ---
Subjective Date of Service: 02/19/19 Interval History: Evaluated in recliner with family at bedside. Patient reports she feels well today, but continues to feel weak. Also reports occasional cramping in bilateral LE that is intermittent. Family reports patient is much improved. Patient denies focal weakness, numbness/tingling, dizziness, headache, cp, sob, n/v/d, fever, chills Objective Active Medications: Acetaminophen (Tylenol Tab*) 650 mg PO Q4H PRN PRN Reason: FEVER/PAIN Last Admin: 02/19/19 03:50 Dose: 650 mg Amlodipine Besylate (Norvasc Tab*) 5 mg PO DAILY [facility] Last Admin: 02/19/19 08:19 Dose: 5 mg Atorvastatin Calcium (Lipitor*) 40 mg PO 1700 [facility] Last Admin: 02/19/19 16:36 Dose: 40 mg Clopidogrel Bisulfate (Plavix Tab*) 75 mg PO 0900 [facility] Last Admin: 02/19/19 08:18 Dose: 75 mg Heparin Sodium (Porcine) (Heparin Vial(*)) 5,000 units SUBCUT Q12HR [facility] Last Admin: 02/19/19 08:19 Dose: 5,000 units Cefazolin Sodium 1 gm/ Sodium (Chloride) 50 mls @ 200 mls/hr IVPB Q8H [facility] Last Admin: 02/19/19 16:37 Dose: 200 mls/hr Sodium Chloride (Ns 0.9% 1000 Ml) 1,000 mls @ 75 mls/hr IV PER RATE [facility] Last Admin: 02/19/19 14:21 Dose: 75 mls/hr Levetiracetam (Keppra Tab*) 750 mg PO BID [facility] Last Admin: 02/19/19 08:18 Dose: 750 mg Levothyroxine Sodium (Synthroid Tab*) 175 mcg PO DAILY@0600 [facility] Last Admin: 02/19/19 05:25 Dose: 175 mcg Losartan Potassium (Cozaar Tab*) 50 mg PO QPM [facility] Last Admin: 02/19/19 16:36 Dose: 50 mg Metoprolol Succinate (Toprol Xl Tab*) 25 mg PO DAILY [facility] Last Admin: 02/19/19 08:18 Dose: 25 mg Ondansetron HCl (Zofran Inj*) 4 mg IV Q6H PRN PRN Reason: NAUSEA Oxygen Devices in Use Now: None Appearance: Comfortable, NAD Eyes: No Scleral Icterus Ears/Nose/Mouth/Throat: Clear Oropharnyx, Mucous Membranes Moist Neck: NL Appearance and Movements; NL JVP Respiratory: Symmetrical Chest Expansion and Respiratory Effort, Clear to Auscultation Cardiovascular: NL Sounds; No Murmurs; No JVD, - - Trace to +1 edema bilaterally Abdominal: NL Sounds; No Tenderness; No Distention Lymphatic: No Cervical Adenopathy Extremities: No Clubbing, Cyanosis Skin: No Nodules or Sclerosis Neurological: Alert and Oriented x 3, NL Muscle Strength and Tone Nutrition: Taking PO's Result Diagrams: 02/19/19 04:52 02/18/19 04:38 Additional Lab and Data: Laboratory Results - last 24 hr 02/19/19 04:52 WBC 12.2 H RBC 2.93 L Hgb 8.8 L Hct 27 L MCV 93 MCH 30 MCHC 32 RDW 14 Plt Count 138 L MPV 11.0 H Neut % (Auto) 73.1 Lymph % (Auto) 13.7 [place] % (Auto) 11.5 Eos % (Auto) 1.4 Baso % (Auto) 0.3 Absolute Neuts (auto) 8.9 H Absolute Lymphs (auto) 1.7 Absolute Monos (auto) 1.4 H Absolute Eos (auto) 0.2 Absolute Basos (auto) 0 Absolute Nucleated RBC 0 Nucleated RBC % 0 Microbiology and Other Data: Microbiology 02/15/19 17:55 Blood Venous Aerobic Blood Culture - Preliminary No Growth Day 4 02/15/19 17:55 Blood Venous Anaerobic Blood Culture - Preliminary No Growth Day 4 02/15/19 17:55 Blood Venous Aerobic Blood Culture - Preliminary No Growth Day 4 02/15/19 17:55 Blood Venous Anaerobic Blood Culture - Preliminary No Growth Day 4 Diagnostic Imaging: CTA: I reviewed the films and saw no evidence of LVO Impression: 1. Athersclerosis 2. No ICA stenosis 3. 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 Chronic white matter disease Assess/Plan/Problems-Billing Ms. Thorpe is an 88-year-old female with a complicated medical history including hypertension, hypothyroidism, previous transient ischemic attacks versus strokes versus seizures. She was on Plavix at home, also on Keppra with occasional episodes of aphasia and some confusion. She has chronic weakness of her right upper extremity after a shoulder injection in the past. She has a difficult time walking due to arthritis, but normally is able to use her left hand and arm without difficulty. Last normal was 10 pm night before presentation. Woke up with left sided findings. Eliseo trevino was called for possible LVO but no LVO on CTA. She was outside the tPA window. Her son reported "mumbling" like noises "like when she is having a seizure" during the night. She also was having some intermittent confusion day of admission. No tongue biting. No bladder incontinence that the family is aware of, although she is incontinent generally. Initial NIH 10 at time of ER presentation Acute Weakness: No evidence of stroke on MRI. No LVO on CTA. This am, she is improved with more movement of the left arm. 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 She typically does not walk at baseline --Echocardiogram today to complete stroke workup --EEG today: I am going to increase her Keppra dose to 750mg po bid as my suspicion is high for new stroke and son reports other episodes intermittently --Can follow up Keppra level as outpatient: The Keppra level was done at 500mg po bid. --No further seizure activity reported, continue seizure precautions --Currently NPO pending speech eval. She has some baseline dysarthria and has a history of old right frontal stroke --Would continue Plavix. No need for DAPT. Given the length of time of symptoms and the severity of symptoms, we can stop the ASA as my suspicion for TIA/Stroke is low --Can work toward better blood pressure control at this point. No evidence of stroke --Nursing Home stroke risk factor management: HTN control, lipid control, continue ASA, statin. Non-diabetic --She has chronic, longstanding right arm weakness, and gait problems related to arthritis. PT/OT pending. Unclear if she is a candidate for inpatient PT --Thyroid replacement per primary team, TSH normal --Celllulitis of the right lower extremity. Recent U/S reported negative for DVT --Hyponatremia, likely hypovolemic. Defer to primary team. I will continue to follow. At this point, my working assumption is that she had a seizure with some prolonged post-ictal state and some Davis's paralysis of the LUE. I have increased her Keppra to 750mg bid. She will need outpatient follow up with Dr. Martines in 4 weeks upon discharge. Assuming her EEG shows no ongoing seizure activity and her Echo looks ok, I am ok with discharge from a neurologic standpoint but unclear if she needs more rehab before returning home. - Patient Problems (1) Cellulitis Comment: -Negative for DVT; x-ray from 01/24 reveals no evidence for fx -Continue Cefazolin (2) Weakness Comment: -Improved strength on L side -MRI reveals no evidence for stroke; CTA shows no LVO; this was likely d/t seizure -Dr. Quach consulted; thank you for the recommendations -Family requesting SNF referal (3) HTN (hypertension) Comment: -SBP WNL -Continue home medications; metoprolol with hold parameters -Continue to monitor (4) Hyperlipidemia Comment: -LDL WNL -Continue atorvastatin (5) Hypothyroidism Comment: -TSH WNL -Continue levothyroxine (6) DNR (do not resuscitate) (7) DVT prophylaxis Comment: -MRI reveals no stroke -Heparin SQ Status and Disposition: Inpatient. Pending SNF approval. Attending: Emmy Gorman
[2019-02-20] MEDS: ceFAZolin 1 GM ADVAN(*) 1 GM in NS 0.9% 50 ML* 50 ML IVPB SCH ×2 (02:05→08:07)
[2019-02-20 05:59] LABS: ABS Basophils 0 10^3/ul (0-0.2); ABS Eosinophils 0.3 10^3/ul (0-0.6); ABS Lymphocytes 1.9 10^3/ul (1.0-4.8); ABS Neutrophils 6.5 10^3/ul (1.5-7.7); ABS Nucleated RBC 0 10^3/ul; Eosinophil % 2.7 %; Hematocrit 27 % (33-41); Lymphocyte % 19.3 %; Mean Corpuscular HGB Conc 34 g/dL (31-36); Mean Corpuscular Hemoglobin 31 pg (27-31); Mean Corpuscular Volume 92 fL (80-97); Mean Platelet Volume 10.6 fL (7.4-10.4); Nucleated Red Blood Cells % 0; Platelet Count 149 10^3/uL (150-450); Red Cell Distribution Width 14 % (10.5-15); White Blood Count 9.6 10^3/uL (3.5-10.8)
[2019-02-20] MEDS: Levothyroxine TAB* 175 MCG TAB PO SCH (06:01)
[2019-02-20 06:10] LABS: BUN/Creatinine Ratio 37.5 (8-20); Calcium 8.4 mg/dL (8.6-10.3); EGFR African American 123.6 (>60); EGFR Non-African American 102.2 (>60); Potassium 4.1 mmol/L (3.5-5.0)
[2019-02-20] MEDS: levETIRAcetam TAB* 500 MG PO SCH ×2 (08:02→20:35)
[2019-02-20] MEDS: Heparin VIAL(*) 5000 UNITS/ML VIAL (FIVE THOUSAND) SUBCUT SCH ×2 (08:02→20:38)
[2019-02-20] MEDS: amLODIPine TAB* 5 MG PO SCH (08:02)
[2019-02-20] MEDS: Clopidogrel TAB* 75 MG PO SCH (08:02)
[2019-02-20] MEDS: Metoprolol Succinate XL TAB* 25 MG PO SCH (08:02)
--- NOTE | 2019-02-20 16:27 | PN ---
Objective Active Medications: Acetaminophen (Tylenol Tab*) 650 mg PO Q4H PRN PRN Reason: FEVER/PAIN Last Admin: 02/19/19 22:28 Dose: 650 mg Amlodipine Besylate (Norvasc Tab*) 5 mg PO DAILY [facility] Last Admin: 02/20/19 08:02 Dose: 5 mg Atorvastatin Calcium (Lipitor*) 40 mg PO 1700 [facility] Last Admin: 02/19/19 16:36 Dose: 40 mg Clopidogrel Bisulfate (Plavix Tab*) 75 mg PO 0900 [facility] Last Admin: 02/20/19 08:02 Dose: 75 mg Heparin Sodium (Porcine) (Heparin Vial(*)) 5,000 units SUBCUT Q12HR [facility] Last Admin: 02/20/19 08:02 Dose: 5,000 units Levetiracetam (Keppra Tab*) 750 mg PO BID [facility] Last Admin: 02/20/19 08:02 Dose: 750 mg Levothyroxine Sodium (Synthroid Tab*) 175 mcg PO DAILY@0600 [facility] Last Admin: 02/20/19 06:01 Dose: 175 mcg Losartan Potassium (Cozaar Tab*) 50 mg PO QPM [facility] Last Admin: 02/19/19 16:36 Dose: 50 mg Metoprolol Succinate (Toprol Xl Tab*) 25 mg PO DAILY [facility] Last Admin: 02/20/19 08:02 Dose: 25 mg Ondansetron HCl (Zofran Inj*) 4 mg IV Q6H PRN PRN Reason: NAUSEA Vital Signs - 8 hr 02/20/19 11:44 Temperature 97.9 F Pulse Rate 75 Respiratory 16 Rate Blood Pressure 139/47 (mmHg) O2 Sat by Pulse 96 Oximetry Oxygen Devices in Use Now: None Result Diagrams: 02/20/19 05:26 02/20/19 05:26 Additional Lab and Data: Laboratory Results - last 24 hr 02/19/19 04:52 WBC 12.2 H RBC 2.93 L Hgb 8.8 L Hct 27 L MCV 93 MCH 30 MCHC 32 RDW 14 Plt Count 138 L MPV 11.0 H Neut % (Auto) 73.1 Lymph % (Auto) 13.7 [place] % (Auto) 11.5 Eos % (Auto) 1.4 Baso % (Auto) 0.3 Absolute Neuts (auto) 8.9 H Absolute Lymphs (auto) 1.7 Absolute Monos (auto) 1.4 H Absolute Eos (auto) 0.2 Absolute Basos (auto) 0 Absolute Nucleated RBC 0 Nucleated RBC % 0 Microbiology and Other Data: Microbiology 02/15/19 17:55 Blood Venous Aerobic Blood Culture - Preliminary No Growth Day 4 02/15/19 17:55 Blood Venous Anaerobic Blood Culture - Preliminary No Growth Day 4 02/15/19 17:55 Blood Venous Aerobic Blood Culture - Preliminary No Growth Day 4 02/15/19 17:55 Blood Venous Anaerobic Blood Culture - Preliminary No Growth Day 4 Diagnostic Imaging: CTA: I reviewed the films and saw no evidence of LVO Impression: 1. Athersclerosis 2. No ICA stenosis 3. 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 Chronic white matter disease Assess/Plan/Problems-Billing Ms. Thorpe is an 88-year-old female with a complicated medical history including hypertension, hypothyroidism, previous transient ischemic attacks versus strokes versus seizures who presented to ED with left sided weakness. - Patient Problems (1) Cellulitis Comment: - Negative for DVT (records from ultrasound completed at [place] 02/15 now in chart) - Completed course of Cefazolin, therefore, d/c today - No significant erythema, warmth or pain noted. Afebrile. No leukocytosis. (2) Weakness Comment: - Improved strength on L side - MRI reveals no evidence for stroke; CTA shows no LVO; Suspected seizure causing AMS and Davis's paralysis - Dr. Quach consulted; thank you for the recommendations - Family requesting SNF referal, awaiting bed offer (3) HTN (hypertension) Comment: -SBP WNL -Continue home medications; metoprolol with hold parameters -Continue to monitor (4) Hyperlipidemia Comment: -LDL WNL -Continue atorvastatin (5) Hypothyroidism Comment: -TSH WNL -Continue levothyroxine (6) DNR (do not resuscitate) (7) DVT prophylaxis Comment: -Heparin SQ Status and Disposition: Inpatient. Pending SNF approval. Attending: Emmy Gorman
[2019-02-20] MEDS: Losartan TAB* 25 MG PO SCH (17:10)
[2019-02-20] MEDS: Atorvastatin* 40 MG TAB PO SCH (17:10)
[2019-02-21] MEDS: Acetaminophen TAB* 325 MG PO PRN (03:21)
[2019-02-21] MEDS: Levothyroxine TAB* 175 MCG TAB PO SCH (05:14)
[2019-02-21] MEDS: Heparin VIAL(*) 5000 UNITS/ML VIAL (FIVE THOUSAND) SUBCUT SCH ×2 (09:13→20:52)
[2019-02-21] MEDS: levETIRAcetam TAB* 500 MG PO SCH ×2 (09:17→20:49)
[2019-02-21] MEDS: Metoprolol Succinate XL TAB* 25 MG PO SCH (09:18)
[2019-02-21] MEDS: amLODIPine TAB* 5 MG PO SCH (09:18)
[2019-02-21] MEDS: Clopidogrel TAB* 75 MG PO SCH (09:18)
--- NOTE | 2019-02-21 13:14 | PN ---
Subjective Date of Service: 02/21/19 Interval History: Resting in recliner on assessment. Reports she feels "well" today. Report mild "achy" legs from positioning. Denies calf pain, numbness/tingling, headache, dizziness, cp, sob, nausea. Objective Active Medications: Acetaminophen (Tylenol Tab*) 650 mg PO Q4H PRN PRN Reason: FEVER/PAIN Last Admin: 02/21/19 03:21 Dose: 650 mg Amlodipine Besylate (Norvasc Tab*) 5 mg PO DAILY [facility] Last Admin: 02/21/19 09:18 Dose: 5 mg Atorvastatin Calcium (Lipitor*) 40 mg PO 1700 [facility] Last Admin: 02/20/19 17:10 Dose: 40 mg Clopidogrel Bisulfate (Plavix Tab*) 75 mg PO 0900 [facility] Last Admin: 02/21/19 09:18 Dose: 75 mg Heparin Sodium (Porcine) (Heparin Vial(*)) 5,000 units SUBCUT Q12HR [facility] Last Admin: 02/21/19 09:13 Dose: 5,000 units Levetiracetam (Keppra Tab*) 750 mg PO BID [facility] Last Admin: 02/21/19 09:17 Dose: 750 mg Levothyroxine Sodium (Synthroid Tab*) 175 mcg PO DAILY@0600 [facility] Last Admin: 02/21/19 05:14 Dose: 175 mcg Losartan Potassium (Cozaar Tab*) 50 mg PO QPM [facility] Last Admin: 02/20/19 17:10 Dose: 50 mg Metoprolol Succinate (Toprol Xl Tab*) 25 mg PO DAILY [facility] Last Admin: 02/21/19 09:18 Dose: 25 mg Ondansetron HCl (Zofran Inj*) 4 mg IV Q6H PRN PRN Reason: NAUSEA Vital Signs - 8 hr 02/21/19 02/21/19 08:00 11:14 Temperature 98.8 F Pulse Rate 77 Respiratory 20 16 Rate Blood Pressure 148/60 (mmHg) O2 Sat by Pulse 94 Oximetry Oxygen Devices in Use Now: None Appearance: Comfortable, NAD Eyes: No Scleral Icterus Ears/Nose/Mouth/Throat: Clear Oropharnyx, Mucous Membranes Moist Neck: NL Appearance and Movements; NL JVP Respiratory: Symmetrical Chest Expansion and Respiratory Effort, Clear to Auscultation Cardiovascular: NL Sounds; No Murmurs; No JVD, RRR Abdominal: NL Sounds; No Tenderness; No Distention Lymphatic: No Cervical Adenopathy Extremities: - - Trace nonpitting edema Neurological: Alert and Oriented x 3, NL Muscle Strength and Tone Nutrition: Taking PO's Result Diagrams: 02/20/19 05:26 02/20/19 05:26 Microbiology and Other Data: Microbiology 02/15/19 17:55 Blood Venous Aerobic Blood Culture - Final No Growth Day 5 02/15/19 17:55 Blood Venous Anaerobic Blood Culture - Final No Growth Day 5 02/15/19 17:55 Blood Venous Aerobic Blood Culture - Final No Growth Day 5 02/15/19 17:55 Blood Venous Anaerobic Blood Culture - Final No Growth Day 5 Diagnostic Imaging: . Assess/Plan/Problems-Billing Ms. Thorpe is an 88-year-old female with a complicated medical history including hypertension, hypothyroidism, previous transient ischemic attacks versus strokes versus seizures who presented to ED with left sided weakness. - Patient Problems (1) Cellulitis Comment: - Seen at [place] 02/15 and dx with cellulitis on RLE. Started on abx at that time which were continued on admission. - Negative for DVT (records from ultrasound completed at [place] 02/15 now in chart) - Completed course of Cefazolin, therefore, d/c'd - No erythema, warmth or pain noted. Afebrile. No leukocytosis. (2) Weakness Comment: - Improved strength on L side - MRI reveals no evidence for stroke; CTA shows no LVO; Suspected seizure causing AMS and Davis's paralysis - Dr. Quach consulted; thank you for the recommendations - Has bed offer in [place] and awaiting auth (3) HTN (hypertension) Comment: -SBP WNL -Continue home medications; metoprolol with hold parameters -Continue to monitor (4) Hyperlipidemia Comment: -LDL WNL -Continue atorvastatin (5) Hypothyroidism Comment: -TSH WNL -Continue levothyroxine (6) DNR (do not resuscitate) (7) DVT prophylaxis Comment: -Heparin SQ Status and Disposition: Inpatient. Discharge to [facility] Probably tomorrow? Attending: Emmy Gorman
[2019-02-21] MEDS: Losartan TAB* 25 MG PO SCH (17:31)
[2019-02-21] MEDS: Atorvastatin* 40 MG TAB PO SCH (17:32)
[2019-02-22] MEDS: Levothyroxine TAB* 175 MCG TAB PO SCH (06:20)
[2019-02-22 08:04] VITALS: BP 140/54
[2019-02-22] MEDS: levETIRAcetam TAB* 500 MG PO SCH (08:12)
[2019-02-22] MEDS: Metoprolol Succinate XL TAB* 25 MG PO SCH (08:12)
[2019-02-22] MEDS: Heparin VIAL(*) 5000 UNITS/ML VIAL (FIVE THOUSAND) SUBCUT SCH (08:13)
[2019-02-22] MEDS: amLODIPine TAB* 5 MG PO SCH (08:13)
[2019-02-22] MEDS: Clopidogrel TAB* 75 MG PO SCH (08:13)
--- NOTE | 2019-02-22 10:48 | DS ---
CC: Dr. Almaraz* DATE OF ADMISSION: 02/15/2019. DATE OF DISCHARGE: 02/22/2019. PRIMARY CARE PHYSICIAN: Dr. Almaraz. MY ATTENDING PHYSICIAN WHILE IN THE HOSPITAL: Dr. Wayne Billy* (dictated by GEOVANNY Roblero). PRIMARY DISCHARGE DIAGNOSIS: Seizures with postictal paralysis. SECONDARY DISCHARGE DIAGNOSES: Hypertension, hypothyroidism, osteoarthritis, rheumatoid arthritis, valvular heart disease, coronary artery disease. STUDIES DONE WHILE IN THE HOSPITAL: 1. Brain CT from 02/15/2019, read as: No acute intracranial pathology. Chronic small vessel ischemic change. 2. Chest x-ray from 02/15/2019, read as: No active cardiopulmonary disease. 3. Head CTA from 02/15/2019, read as: Atherosclerosis. No internal carotid artery stenosis. No aneurysm, vascular malformation, occlusion, or stenosis. 4. Brain MRI from 02/15/2019, read as: Chronic small vessel ischemic changes with remote right frontal infarct. No restricted diffusion to suggest acute infarct. 5. Transthoracic echocardiogram from 02/16/2019, read as: The left ventricular chamber size is normal. Mild basal septal hypertrophy. Global left ventricular wall motion and contractility are within normal limits. Estimated ejection fraction 65 to 70 percent. The left atrium is mildly dilated. The right ventricular chamber size and systolic function are within normal limits. There is mild aortic regurgitation. There is mild to moderate mitral regurgitation. There is a small pericardial effusion. There are no signs of hemodynamic compromise. The bubble study is negative. No change except for development of small pericardial effusion since 2018. 6. Electroencephalogram from 02/16/2019, read as: Abnormal EEG due to generalized slowing from the right hemisphere. This is consistent with right hemisphere neuronal dysfunction. There are no epileptiform discharges during this recording. There are no clinical events. MEDICATIONS AT DISCHARGE: 1. Synthroid 175 mcg p.o. daily. 2. Amlodipine 5 mg p.o. daily. 3. Lipitor 40 mg p.o. daily. 4. Clopidogrel 75 mg p.o. daily. 5. Metoprolol Succinate 25 mg p.o. daily. 6. Irbesartan 150 mg p.o. nightly. 7. Tylenol 650 mg p.o. q.4 hours as needed. 8. Keppra 750 mg p.o. b.i.d. Medications discontinued at discharge: Keppra 500 mg p.o. b.i.d. HOSPITAL COURSE: This is a brief summary of the patient's presentation. For more details, please see the history and physical from Contreras Ramos NP on . In brief, the patient is an 88-year-old female with the past medical history stated above who presented to the emergency department. The night before her presentation, she had an episode of mumbling which she has been having for over a year, as well as involuntary movements while she was sleeping. The patient in morning awoke and had left-sided weakness in her upper and lower extremity, particularly in her hand. The patient has chronic right-sided weakness. The patient was sent in by her neurologist with concern for a stroke. The patient was admitted to the hospital. The patient had an NIH stroke scale of 10. The patient had no sign of LVO or stroke on her MRI. The patient had a low suspicion for stroke after initial work-up and had her Keppra increased with concern for seizures. The patient's strength improved and had no further seizure activity during her hospitalization. The patient had issues with cellulitis in her lower extremity for which she was started on Keflex. The patient completed a seven day course of antibiotics for her cellulitis with great clinical improvement. The patient had slight leukocytosis during her hospitalization which resolved. The patient also had a slight hyponatremia which also improved. The patient is anemic around her baseline with no active signs of bleeding. The patient was identified to have rehab needs by Physical Therapy and was stable and amenable for discharge on 02/22/2019 to rehab. PHYSICAL EXAMINATION ON THE DAY OF DISCHARGE: General: This is an 88-year-old female who appears stated age and sitting comfortably in the bed in no acute distress. Vital Signs at the time of evaluation: Temperature 98.2, pulse rate 88, respiratory rate 16, oxygen saturation 92 percent on room air, blood pressure 140/54. HEENT: Head normocephalic, atraumatic. Sclerae anicteric. No conjunctival injection. Nasal mucosa moist. Oral mucosa moist. No pharyngeal erythema, discharge, or exudate. Neck: Supple, nontender. No lymphadenopathy. No carotid bruits auscultated. No JVD. Cardiac: Regular rate and rhythm. No clicks, murmurs, gallops, or rubs. Pulses are 2+ in the bilateral dorsalis pedis, posterior tibialis, and radial areas. Respiratory: Clear to auscultation bilaterally. No wheezes, rales, or rhonchi. Good air exchange bilaterally. Abdomen: Soft, nontender, nondistended. Bowel sounds present. Normoactive in all four quadrants. No hepatosplenomegaly. No abdominal bruits auscultated. No hepatojugular reflux. Genitourinary: No suprapubic or CVA tenderness. Skin: Clean, dry, and intact. No rash. Neuro: Cranial nerves II through XII intact. 4+/5 strength in the left upper and lower extremities distally and proximally. No issues with cerebellar testing. Gait not tested. Psychiatric: Pleasant and cooperative. DISCHARGE PLAN: The patient will be discharged to [facility] with the goal of increasing her strength to return home. The patient had her Keppra increased. The patient should follow-up with her neurologist within one month for a repeat Keppra level and to assess how well she is tolerating this medication. The patient's cholesterol profile is excellent and her hemoglobin A1c is barely in the prediabetic range and should be rechecked as an outpatient. The patient is normotensive on her home medications. The patient should return to the hospital for chest pain, shortness of breath, worsening seizure activity, passing out or other alarming symptoms. The patient should follow-up with her primary care provider within one week after discharge from rehab. DIET: The patient should have a heart-healthy diet, decaf okay. ACTIVITY: The patient engage in activity as tolerated, working with PT and OT to help restore functional capacity. TIME SPENT: Approximately 60 minutes were spent in the discharge of this patient, 30 of which were spent [id number] with the patient obtaining history and physical and discussing treatment plan. GEOVANNY ROBLERO [id number]/MOY #: [id number] SANAZ
== END 2019-02-22 12:24 | DRG 101 ==
LOC: ED 14:14 → MEDTELE 15:07
PROVIDERS: ADMIT Student in an Organized Health Care Education/Training Program; ATTEND Internal Medicine
PROC: 4A10X4Z Monitoring of Central Nervous Electrical Activity, External Approach (ICD-10-PCS; principal; 2019-02-16)
DX: R56.9 Unspecified convulsions (principal); I31.3 Pericardial effusion (noninflammatory); E87.1 Hypo-osmolality and hyponatremia; L03.115 Cellulitis of right lower limb; R47.01 Aphasia; G83.84 Todd's paralysis (postepileptic); I10 Essential (primary) hypertension; E03.9 Hypothyroidism, unspecified; M19.90 Unspecified osteoarthritis, unspecified site; M06.9 Rheumatoid arthritis, unspecified; I25.10 Atherosclerotic heart disease of native coronary artery without angina pectoris; I08.0 Rheumatic disorders of both mitral and aortic valves; R53.1 Weakness; R29.710 NIHSS score 10; D64.9 Anemia, unspecified; M21.372 Foot drop, left foot; I44.4 Left anterior fascicular block; E78.5 Hyperlipidemia, unspecified; E78.00 Pure hypercholesterolemia, unspecified; R32 Unspecified urinary incontinence; Z66 Do not resuscitate; Z90.49 Acquired absence of other specified parts of digestive tract; Z90.710 Acquired absence of both cervix and uterus; Z79.02 Long term (current) use of antithrombotics/antiplatelets; Z85.850 Personal history of malignant neoplasm of thyroid; Z86.73 Personal history of transient ischemic attack (TIA), and cerebral infarction without residual deficits; Z88.5 Allergy status to narcotic agent
CPT/HCPCS: 36415; 70450; 70496; 70498; 70551; 71045; 80048; 80053; 80061; 80177; 81003; 81015; 83036; 83605; 84443; 84484; 85014; 85018; 85025; 85027; 85610; 85730; 86850; 86900; 86901; 87040; 93005; 93306; 95819; 99285; A9270-GY; G8978-GP-CL; G8979-GP-CI; G8987-GO-CM; G8988-GO-CL; J0690; J1644; Q9967